=== PATIENT | male | born 1980 | race Two or more races ===

== ENCOUNTER 2017-03-12 14:56 | Emergency (ER) | payer BC, SELFPAY ==
[~2017-03-12] VITALS: Ht 165.1 cm; Wt 159.1 kg
[2017-03-12] MEDS ORDERED: TYLE325T5 PO (15:13)
[2017-03-12] MEDS ORDERED: IBUP-1022 PO (15:13)
[2017-03-12] MEDS ORDERED: NS 1,000 ML IV ONE (15:45)
[2017-03-12] MEDS ORDERED: MORPHINE 2 MG/ML 1ML SYRINGE IV ONE (15:45)
[2017-03-12] MEDS ORDERED: ONDANSETRON 4MG/2ML VIAL (J2405) IV ONE (16:00)
[2017-03-12] MEDS ORDERED: ACETAMINOPHEN 325 MG TAB PO ONE (16:00)
[2017-03-12 16:05] LABS: MEAN CORPUSCULAR HEMOGLOBIN 28.6 pg (27.0-33.0); MEAN CORPUSCULAR HGB CONC 32.3 g/dl (32.0-36.5); MEAN CORPUSCULAR VOLUME 88.3 fl (80.0-96.0); PLATELET COUNT, AUTOMATED 165 10^3/uL (150-450); RED CELL DISTRIBUTION WIDTH 13.9 % (11.5-14.5)
[2017-03-12 16:06] LABS: LEFT SHIFT POS FLAG; POSITIVE MORPH POS FLAG
[2017-03-12 16:07] LABS: ADD MANUAL DIFFER YES; BLASTS POS FLAG; DIFF SLIDE NUMBER 130
[2017-03-12 16:37] LABS: BANDS 10 % (< 11)
[2017-03-12 16:38] LABS: PLATELET CLUMPS MODERATE AMT
[2017-03-12 16:41] LABS: DOHLE BODIES 1+
[2017-03-12 16:42] LABS: ALBUMIN 2.9 GM/DL (3.2-5.2); ALBUMIN/GLOBULIN RATIO 0.64 (1.00-1.93); CALCIUM LEVEL 8.8 MG/DL (8.5-10.1); CREATININE FOR GFR 1.64 MG/DL (0.70-1.30); GLOMERULAR FILTRATION RATE 50.3 (>60); POTASSIUM SERUM 3.5 MEQ/L (3.5-5.1); TOTAL PROTEIN 7.4 GM/DL (6.4-8.2)
--- NOTE | 2017-03-12 17:02 | REP ---
Left lower extremity deep vein duplex ultrasound: Because of patient body habitus, soft tissue swelling and pain. The patient could not tolerate compression by the transducer. However, color flow was identified from the popliteal vein to the common femoral vein. This is a limited study. No evidence of deep vein thrombus on this limited study. Signed by Dixon Serrano MD 03/12/2017 04:53 P
[2017-03-12] MEDS ORDERED: CLINDAMYCIN 900 MG in APPROPRIATE DILUENT 1 EA IV ONE (17:15)
[2017-03-12] MEDS ORDERED: IBUPROFEN 800 MG TAB PO ONE (17:45)
[2017-03-12] MEDS ORDERED: CLEO300C2 PO (18:37)
[2017-03-12] MEDS ORDERED: PERC5TAB12 PO (18:37)
[2017-03-12 18:43] VITALS: BP 100/51
== END 2017-03-12 19:05 | disposition home or self-care (01) ==
LOC: M ED 14:56
DX: L03.116 Cellulitis of left lower limb (principal); K52.9 Noninfective gastroenteritis and colitis, unspecified
CPT/HCPCS: 80053; 83605; 85025; 87040; 87804; 93971; 96361; 96365; 96375; 99284; J2405

== ENCOUNTER 2017-03-14 07:15 | Inpatient (IN) | payer SELFPAY ==
[~2017-03-14] VITALS: Ht 165.1 cm; Wt 173.7 kg
[~2017-03-14 07:15] MED LIST: CLEO300C2 PO; IBUP-1022 PO; PERC5TAB12 PO; TYLE325T5 PO
[2017-03-14] MEDS ORDERED: CEFTAROLINE FOSAMIL 600 MG in D5W 50 ML IV ONE (08:00)
[2017-03-14 08:32] LABS: BASO % 0.3 % (0.0-1.0); LYMPH # 0.8 10^3/uL (1.5-4.5); MEAN CORPUSCULAR HEMOGLOBIN 28.9 pg (27.0-33.0); MEAN CORPUSCULAR HGB CONC 32.7 g/dl (32.0-36.5); MEAN CORPUSCULAR VOLUME 88.1 fl (80.0-96.0); MONO # 1.4 10^3/uL (0.0-0.8); MONO % 10.8 % (0.0-5.0); NEUTROPHILS # 10.4 10^3/uL (1.8-7.7); NEUTROPHILS % 81.9 % (36.0-66.0); PLATELET COUNT, AUTOMATED 205 10^3/uL (150-450); RED CELL DISTRIBUTION WIDTH 14.5 % (11.5-14.5); WHITE BLOOD COUNT 12.8 10^3/uL (4.0-10.0)
[2017-03-14 08:38] LABS: LEFT SHIFT POS FLAG; POSITIVE MORPH POS FLAG
[2017-03-14 09:03] LABS: ERYTHROCYTE SEDIMENTATION RATE 85 mm/hr (0-15)
[2017-03-14 09:11] LABS: BANDS 1 % (< 11); CALCIUM LEVEL 9.1 MG/DL (8.5-10.1); CREATININE FOR GFR 3.44 MG/DL (0.70-1.30); GLOMERULAR FILTRATION RATE 21.4 (>60); POTASSIUM SERUM 3.4 MEQ/L (3.5-5.1)
[2017-03-14 09:13] LABS: DOHLE BODIES 1+
[2017-03-14] MEDS ORDERED: NS 1,000 ML IV ONE (09:45)
[2017-03-14] MEDS ORDERED: ACET50TAOT PO (10:00)
[2017-03-14] MEDS ORDERED: CEFTAROLINE FOSAMIL 300 MG in D5W 50 ML IV SCH ×2 (10:15→21:00)
--- NOTE | 2017-03-14 11:15 | REP ---
Left lower extremity Duplex Doppler venous ultrasound: Real time compression and duplex Doppler interrogation of the left lower extremity deep venous system is performed. The left common femoral, superficial femoral and popliteal veins are fully compressible with transducer pressure and demonstrate normal spontaneous and phasic flow, without evidence of deep venous thrombosis. Impression: No evidence of deep venous thrombosis of the left lower extremity femoral popliteal venous system. There is left inguinal adenopathy with several enlarged lymph nodes present, the largest measuring 5.9 x 1.7 x 3.2 cm. Signed by Dixon Wilson MD 03/14/2017 11:07 A
[2017-03-14 11:55] VITALS: BP 137/92
--- NOTE | 2017-03-14 11:57 | REP ---
RENAL AND BLADDER ULTRASOUND: Real-time sonographic evaluation of the kidneys performed. Study is limited due to patient body habitus. Kidneys appear normal in size and echotexture, right kidney measuring 14.3 x 5.3 x 5.6 cm and left kidney 14.0 x 5.8 x 6.7 cm. There is no hydronephrosis bilaterally. No gross mass or calculus is seen. Urinary bladder is mildly distended and grossly unremarkable. IMPRESSION: No evidence of hydronephrosis. Signed by Dixon Wilson MD 03/15/2017 04:25 P
[2017-03-14] MEDS: NS 1,000 ML IV SCH ×2 (12:16→21:00)
[2017-03-14] MEDS: ACETAMINOPHEN TAB 650MG DOSE (2X325MG) PO PRN ×3 (12:16→22:09)
[2017-03-14] MEDS: HEPARIN SOD (PORCINE) 5000 UNITS/ML VIAL SC SCH ×2 (13:50→20:59)
[2017-03-14 16:00] VITALS: BP 135/79
--- NOTE | 2017-03-14 17:18 | HPEPDOC ---
General Date of Admission Mar 14, 2017 at 10:09 Chief Complaint The patient is a 36-year-old male who presented to the ER with complaints of left lower extremity swelling, pain and redness. History of Present Illness Patient is a 36 year old male with no reported PMHx who presented to the ER with complaints of left lower extremity swelling, pain and redness. He has noted that on he began to experience redness and pain of his left leg. He described the pain as a 4/10, tingling sensation, continuous, alleviated with walking and exacerbated by sitting. He presented to the ER on Monday and received an US that was negative for a DVT. He was sent home with Clindamycin and advised to take Ibuprofen for the pain. Over the next day his leg became more swollen and weepy. He described the discharge as clear and watery. He denied having any fevers. But did report chills. He presented back to the ER today (03/14) for further evaluation. He denies any trauma or bug bites to the leg. He denies nausea, vomiting, chest pain, shortness of breath, palpitations, abdominal pain, constipation, diarrhea or dysuria. Denies any recent change in his weight or appetite. Home Medications Scheduled Clindamycin Hcl (Cleocin) 300 Mg Cap, 300 MG PO QID Scheduled PRN Acetaminophen (Acetaminophen) 500 Mg Tab, 1,000 MG PO Q6H PRN for PAIN, ( Reported) Ibuprofen (Ibuprofen) 600 Mg Tab, 800 MG PO Q6H PRN for PAIN, (Reported) Oxycodone/Acetaminophen (Percocet 5-325 mg) 1 Tab Tab, 1 TAB PO Q6H PRN for PAIN Allergies Coded Allergies: No Known Drug Allergy (Verified Allergy, Unknown, 03/12/17) Past Medical History Medical History Denies Surgical History Double hernia as infant Spermatacord torsion (age 89 Vasectomy (2011) Right hand tendon repair (2007) Family History - Mother with history of chronic fatigue - Father with no reported problems - No history of malignancies Social History - Denies the use of tobacco or illicit drugs; Social alcohol use - Denies recent travel or sick contacts - Lives with and children - Occupation; fruit or nut farmer Review of Symptoms Other systems Negative otherwise stated in HPI Vital Signs - Vitals: BP 126/78, HR 106, RR 18, Sat 94%RA, Temp 96.9F - General: Lying in bed, No acute distress, Speaking in full sentences, AAOx3 - HEENT: NC, AT, PERRLA, EOMI - CVS: RRR, +S1S2 - Lungs: Fair air entry bilaterally, Clear to auscultation, No wheezing / rales / rhonchi - Abdomen: Soft, Non-distended, Non-tender, Obese - Extremities: 1+ pitting edema bilaterally, No calf tenderness - Neuro: No focal motor or sensory deficit - Skin: Left leg with anterior redness, erythema, tenderness and drainage Laboratory Data Labs 24H Laboratory Tests 2 03/14/17 08:19: Immature Granulocyte % (Auto) 1.0H, White Blood Count 12.8H, Red Blood Count 3.88L, Hemoglobin 11.2L, Hematocrit 34.2L, Mean Corpuscular Volume 88.1, Mean Corpuscular Hemoglobin 28.9, Mean Corpuscular Hemoglobin Concent 32.7, Red Cell Distribution Width 14.5, Platelet Count 205, Neutrophils (%) (Auto) 81.9H, Lymphocytes (%) (Auto) 6.0L, Monocytes (%) (Auto) 10.8H, Eosinophils (%) (Auto) 0.0, Basophils (%) (Auto) 0.3, Neutrophils # (Auto) 10.4H, Lymphocytes # (Auto) 0.8L, Monocytes # (Auto) 1.4H, Eosinophils # (Auto) 0.0, Basophils # (Auto) 0.0 , Immature Granulocyte # (Auto) 0.1H, Nucleated Red Blood Cells % (auto) 0.0, Neutrophils 81H, Band Neutrophils 1, Lymphocytes (Manual) 7L, Monocytes (Manual ) 11H, Dohle Bodies 1+, Platelet Estimate NORMAL, Erythrocyte Sedimentation Rate 85H, Anion Gap 11, Glomerular Filtration Rate 21.4L, Osmolality 295, Lactic Acid Level 0.7, Blood Urea Nitrogen 55#H, Creatinine 3.44#H, Sodium Level 133L, Potassium Level 3.4L, Chloride Level 99, Carbon Dioxide Level 23, Calcium Level 9.1, C-Reactive Protein, Quantitative 42.30H CBC/BMP Laboratory Tests 03/14/17 08:19 Red Blood Count 3.88 L, Mean Corpuscular Volume 88.1, Mean Corpuscular Hemoglobin 28.9, Mean Corpuscular Hemoglobin Concent 32.7, Red Cell Distribution Width 14.5, Neutrophils (%) (Auto) 81.9 H, Lymphocytes (%) (Auto) 6.0 L, Monocytes (%) (Auto) 10.8 H, Eosinophils (%) (Auto) 0.0, Basophils (%) ( Auto) 0.3, Neutrophils # (Auto) 10.4 H, Lymphocytes # (Auto) 0.8 L, Monocytes # (Auto) 1.4 H, Eosinophils # (Auto) 0.0, Basophils # (Auto) 0.0, Calcium Level 9.1 Microbiology Microbiology 03/14/17 Blood Culture, Received Pending 03/14/17 Blood Culture, Received Pending Plan / VTE VTE Prophylaxis Ordered?: Yes Plan Plan Cellulitis of Left leg - Presented with pain, swelling and redness of left leg - Failed outpatient therapy - Leukocytosis, no lactic acidosis - Blood cultures and Wound cultures acquired and pending - s/p Ceftaroline 600mg in ER; will c/w 400mg IV q12h Acute kidney injury - likely 2/2 intra-renal etiology, possibly pre-renal etiology - Cr on Monday (03/12) was noted to be 1.64 - Currently Cr of 3.44 - No electrolyte abnormalities noted - Will check urine electrolytes, Urinalysis, Renal US - c/w IV fluid hydration with NS - Avoid nephrotoxic medications - Consulted nephrology Bilateral LE edema - possibly 2/2 dependent edema, possibly 2/2 CHF - Does not complain of any shortness of breath - Lungs auscultation is clear - will check ECHO DVT prophylaxis - Will start Heparin DANIEL DENNY MD Mar 14, 2017 17:18
[2017-03-14 20:00] VITALS: BP 131/74
[2017-03-14] MEDS ORDERED: CEFTAROLINE FOSAMIL 400 MG in D5W 50 ML IV SCH (21:00)
[2017-03-15] VITALS (8 sets, daily range): BP systolic 124–178; BP diastolic 60–88
[2017-03-15] MEDS: PERCOCET 5MG/325MG TAB PO PRN ×2 (02:33→10:46)
[2017-03-15] MEDS: HEPARIN SOD (PORCINE) 5000 UNITS/ML VIAL SC SCH ×3 (06:00→22:30)
[2017-03-15] MEDS: NS 1,000 ML IV SCH ×2 (07:30→18:57)
[2017-03-15 07:44] LABS: MEAN CORPUSCULAR HEMOGLOBIN 28.7 pg (27.0-33.0); MEAN CORPUSCULAR VOLUME 89.8 fl (80.0-96.0); PLATELET COUNT, AUTOMATED 218 10^3/uL (150-450); RED CELL DISTRIBUTION WIDTH 14.7 % (11.5-14.5); WHITE BLOOD COUNT 12.5 10^3/uL (4.0-10.0)
[2017-03-15 07:57] LABS: LEFT SHIFT POS FLAG; POSITIVE MORPH POS FLAG
[2017-03-15 07:58] LABS: ADD MANUAL DIFFER YES; DIFF SLIDE NUMBER 68
[2017-03-15] MEDS: FIORICET TAB PO PRN ×3 (08:00→20:30)
[2017-03-15 08:25] LABS: BANDS 1 % (< 11)
[2017-03-15 08:26] LABS: ALBUMIN 2.2 GM/DL (3.2-5.2); ALBUMIN/GLOBULIN RATIO 0.48 (1.00-1.93); BILIRUBIN,TOTAL 0.6 MG/DL (0.2-1.0); CALCIUM LEVEL 8.7 MG/DL (8.5-10.1); CREATININE FOR GFR 2.51 MG/DL (0.70-1.30); GLOMERULAR FILTRATION RATE 30.8 (>60); MAGNESIUM LEVEL 2.4 MG/DL (1.8-2.4); POTASSIUM SERUM 3.8 MEQ/L (3.5-5.1); TOTAL PROTEIN 6.8 GM/DL (6.4-8.2)
--- NOTE | 2017-03-15 09:08 | REP ---
Head CT without contrast: History: Question bleed. Comparison study: No comparison. CT findings: Bone window settings demonstrate an intact bony calvarium. There is no evidence of skull fracture or incidental bony calvarial lesion. The visualized paranasal sinuses appear clear. No intraorbital abnormality is seen. On soft tissue window setting images; the lateral, third, and fourth ventricles are normal in size and position. Wilson-white differentiation pattern is normal above and below the tentorium. There are is no evidence of intracranial hemorrhage. No mass, edema, infarction, or midline shift is seen. No extra-axial fluid collection is appreciated. Impression: Negative noncontrast head CT. Signed by Osmel Gillespie MD 03/15/2017 09:00 A
[2017-03-15] MEDS ORDERED: CEFTAROLINE FOSAMIL 400 MG in D5W 50 ML IV SCH (10:00)
--- NOTE | 2017-03-15 11:09 | IPNPDOC ---
Text Note Date of Service The patient was seen on 03/15/17. NOTE Subjective: Patient is a 36 year old male with no reported PMHx who presented to the ER with complaints of left lower extremity swelling, pain and redness. Admitted for left leg cellulitis. Patient was seen and examined at the bedside. Currently notes that the pain in his leg is doing better, but has been noticing pain in is left upper groin. He continues to spike fevers. He also notes a migraine type headache. Objective: Vitals (See below) General: Lying in bed, no acute distress, uncomfortable, AAOx3 HEENT: NC, AT CVS: RRR, +S1S2 Lungs: Fair air entry b/l, -w/r/r Abdomen: Soft, ND, NT, Obese Extremities: 1+ pitting edema bilaterally, - Calf tenderness Skin: Left leg with anterior redness, erythema, tenderness and drainage; +Left inguinal lymphadenopathy Assessment and plan: Cellulitis of Left leg; possibly appears to be worsening - Presented with pain, swelling and redness of left leg; denies any trauma / bug bites - Failed outpatient therapy - Leukocytosis persists, no lactic acidosis again on lab work; CRP trending down - Blood cultures remain pending; Wound cultures currently negative - Duplex US 03/14: negative for DVT - Will order CT of left lower extremity to evaluate - Start Vancomycin and Zosyn; Will d/c Ceftaroline Headache - likely 2/2 migraine headache - CT scan head 03/15: Negative - c/w Fioricet Acute kidney injury - likely 2/2 intra-renal etiology, possibly pre-renal etiology - Cr on Monday (03/12) was noted to be 1.64; on admission was 3.44 - Cr has trended down - No electrolyte abnormalities noted - FENa of 0.4%; Renal US 03/14: no evidence of hydronephrosis - c/w IV fluid hydration with NS and avoid nephrotoxic medications - Nephrology (Dr. Garcia / Dr. Payne) following; appreciate their input Bilateral LE edema - possibly 2/2 dependent edema, possibly 2/2 CHF - Does not complain of any shortness of breath - Lungs auscultation is clear - ECHO pending s/p Hypokalemia s/p Hyponatremia DVT prophylaxis - c/w Heparin VS,Fishbone, I+O VS, Fishbone, I+O Laboratory Tests 03/15/17 07:28 Red Blood Count 3.62 L, Mean Corpuscular Volume 89.8, Mean Corpuscular Hemoglobin 28.7, Mean Corpuscular Hemoglobin Concent 32.0, Red Cell Distribution Width 14.7 H, Calcium Level 8.7, Aspartate Amino Transf (AST/SGOT) 38 H, Alanine Aminotransferase (ALT/SGPT) 60, Alkaline Phosphatase 116, Total Bilirubin 0.6, Total Protein 6.8, Albumin 2.2 #L Vital Signs Date Time Temp Pulse Resp B/P (MAP) Pulse Ox O2 Delivery O2 Flow Rate FiO2 03/15/17 10:46 24 03/15/17 08:30 Room Air 03/15/17 08:30 99.8 97 124/82 (96) 97 DANIEL DENNY MD Mar 15, 2017 11:09
--- NOTE | 2017-03-15 12:25 | REP ---
CT of the pelvis without IV contrast: There are no comparisons. There is no ascites or adenopathy. There are no focal soft tissue fluid collections to suggest abscess. There are occasional diverticula in the sigmoid colon without CT evidence of diverticulitis. There are no lytic, blastic or destructive skeletal changes to suggest osteomyelitis. There is wall thickening of the distal sigmoid colon, nonspecific, artifact from under distension. However, this could represent colitis in the appropriate clinical setting. Impression: No evidence of abscess or osteomyelitis. Question colitis of the distal sigmoid colon versus artifact from under distension. Signed by Dixon Serrano MD 03/15/2017 12:16 P
--- NOTE | 2017-03-15 12:30 | REP ---
CT of the left femur without IV contrast: There are no lytic, blastic or destructive skeletal changes to suggest osteomyelitis. There is circumferential edema in the subcutaneous fat compatible with dependent edema. There is edema in the subcutaneous fat surrounding the left femoral nodes which could be infectious/inflammatory versus dependent edema. There is no lymph node enlargement. No focal soft tissue fluid collections to suggest abscess. Impression: Circumferential soft tissue edema in the subcutaneous fat of the left thigh. Focal edema in the subcutaneous fat surrounding the left femoral nodes. No focal abscess. No CT evidence of osteomyelitis. Signed by Dixon Serrano MD 03/15/2017 12:20 P
[2017-03-15] MEDS: PIPERACILLIN/TAZOBACTAM SOD 2.25 GM in D5W 50 ML IV SCH ×2 (12:47→20:51)
--- NOTE | 2017-03-15 12:55 | REP ---
CT of the foot without IV contrast : Axial images are acquired helical scanning and a reformatted sagittal coronal projections. There are no comparison studies. There is circumferential edema in the subcutaneous fat, possibly dependent anemia. No soft tissue fluid collection is identified to suggest a soft tissue mass. There are no lytic, blastic or destructive skeletal changes to suggest osteomyelitis. There is a small calcification interposed into the joint space along the anterior joint line. This could be a loose body or could be ligamentous calcification. There is no fracture or dislocation. There is osteochondroses density cans of the talar dome laterally. Impression: No soft tissue fluid collections suggest abscess. No evidence of osteomyelitis. Osteochondrosis dessicated of the dome of the talus laterally. Small calcification along the anterior and tibiotalar joint line, ligamentous calcification versus intra-articular loose body. Circumferential edema in the subcutaneous fat, likely dependent edema. Signed by Dixon Serrano MD 03/15/2017 12:47 P
--- NOTE | 2017-03-15 13:01 | REP ---
CT of the left tibia-fibula: Axial images are acquired helical scanning and are reformatted sagittal and coronal projections. There is circumferential edema in the subcutaneous fat throughout the lower extremity compatible with dependent edema. No focal fluid collection is identified to suggest abscess. There is a 3 cm skin lesion medially at the mid calf. There are no lytic, blastic or destructive skeletal changes to suggest osteomyelitis. There is osteochondrosis this cans of the head of the talus posterior O laterally. Impression: No soft tissue abscess. No CT evidence of osteomyelitis. There is circumferential soft tissue edema compatible with dependent edema. There is a t 3 cm skin lesion at the mid calf medially. Signed by Dixon Serrano MD 03/15/2017 12:53 P
[2017-03-15] MEDS: VANCOMYCIN HCL 1,000 MG, VIAL MATE ADAPTER 1 EACH in D5W 250 ML IV SCH (13:40)
[2017-03-15] MEDS ORDERED: VANCOMYCIN HCL 1,000 MG, VIAL MATE ADAPTER 1 EACH in D5W 250 ML IV ONE (14:00)
--- NOTE | 2017-03-15 14:48 | PHACANCOPD ---
PHARMACY VANCOMYCIN DOSING Pt Demographics Demographics Patient Age:36 , Weight:172.900 , Gender: male Adjusted Body Weight Date: 03/15/17, Adjusted Body Weight: Kg Vancomycin Vancomycin indication: MRSA COVERAGE Vancomycin Target Ranges: 15-20 mcg/ml Vancomycin Load Y/N: Yes Load Dose Date Time Vancomycin Load Dose: 2g Date: 03/15/17 Time: 1300 Vancomycin Dose Date: 03/15/17. Current Vancomycin Dose: [1g IV Q24H] Intermittent Dosing?: No Labs Micro Microbiology 03/15/17 Blood Culture, Received Pending 03/15/17 Blood Culture, Received Pending 03/14/17 Blood Culture - Preliminary, Resulted No growth after 24 hours . All specim... 03/14/17 Blood Culture - Preliminary, Resulted No growth after 24 hours . All specim... 03/14/17 Gram Stain - Final, Resulted 03/14/17 Wound Culture - Preliminary, Resulted Staphylococcus Aureus Creatinine Clearance Date:03/15/17. Creatinine Clearance: . Assessment and Plan Maintaining Current Dose?: Yes Reason for dose change: No Dose Change Pharmacist Note Pharmacist Note Date: 03/15/17. Pharmacist note: Day#1 empiric vancomycin initiated with a 2g loading dose, followed by a maintenance regimen of 1g IV q24H for MRSA coverage - aiming for a goal trough of 15-20mcg/ml. A vancomycin trough has been scheduled for 03/17/17 @1200. We will continue to monitor and make dose adjustments if needed. MY[facility] Mar 15, 2017 14:48
[2017-03-15] MEDS: ACETAMINOPHEN TAB 650MG DOSE (2X325MG) PO PRN (18:56)
--- NOTE | 2017-03-15 20:36 | CR ---
DATE OF CONSULTATION: 03/14/2017 REQUESTING PHYSICIAN: Abraham Nguyễn MD REASON FOR CONSULTATION: Management of acute kidney injury. CHIEF COMPLAINT: Six day history of left lower extremity swelling, pain, and erythema. HISTORY OF PRESENT ILLNESS: Patient is a 36-year-old male who denies any significant past medical history, but who also admits that he has not seen a physician for care in at least the past 8 years and also denies any blood work in the past 6-8 years. He only admits to a history of morbid obesity. The patient states he was in his usual state of health until when he noted tenderness, pain, and swelling in his left leg. The symptoms progressively got worse despite the patient using ibuprofen and Tylenol as needed at home. The patient came to the emergency room on Monday for further evaluation and he had a venous Duplex at the time that was negative for deep venous thrombosis (DVT). His creatinine on that emergency room (ER) visit was 1.6 and he had a white count of 12.8. The patient was sent home with a prescription for clindamycin and advised to take ibuprofen for pain as needed. The patient reports he took about six ibuprofen on Monday and he also received 800 mg of ibuprofen in the emergency room on Monday. On Monday, the patient states he took six ibuprofen in the morning and a further six ibuprofen in the evening, a cumulative dose of 2400 mg of ibuprofen on Monday. His pain did not lessen despite significant nonsteroidal anti-inflammatory drug (NSAID) use and the patient also noted concomitant fevers and chills at home, stated that his temperatures were 103-104, and also intermittent diarrhea and poor oral intake. He came to the emergency room again today for further evaluation. In the ER on arrival, patient was mildly tachycardic, pulse 106. Labs demonstrated decremental decrease in glomerular filtration rate (GFR) with creatinine of 3.4 today. He received IV ceftaroline and normal saline bolus and Tylenol for pain control. PAST MEDICAL HISTORY: Morbid obesity. Patient otherwise denies past medical history, but admits to not having had outpatient care with a physician for at least the past 6-8 years. PAST SURGICAL HISTORY: 1. Hernia repair in infancy. 2. Vasectomy in 2011. 3. Hand surgery in 2007. FAMILY HISTORY: Mother with reported gynecologic malignancy. Father with no reported medical problems. One brother and two sisters, alive and healthy. SOCIAL HISTORY: The patient denies tobacco or illicit drugs. He admits to social alcohol. He denies any recent travel. He works as a guerrero. ALLERGIES: No known drug allergies. HOME MEDICATIONS: The patient was taking Tylenol, ibuprofen, and clindamycin. REVIEW OF SYSTEMS: Positive for fevers, chills, nausea, diarrhea, left lower extremity pain, swelling, tenderness, and erythema, occasional lightheadedness. Remainder of review of systems is negative. Temperature afebrile, 98.1, pulse 88, respiratory rate 18, blood pressure 135/79, saturating 95% on room air. Intake and output: Urine output thus far 850 mL. PHYSICAL EXAMINATION: The patient is seen in the emergency room. He is awake, alert, oriented times four and in no acute distress. HEAD and NECK: Extraocular muscles are intact. The oral mucosa is moist. The neck is supple and obese. CARDIOVASCULAR: Distant heart sounds, S1, S2, 2+ radial pulse. There is 1+ pitting edema in the right lower extremity and significantly more pitting edema in the left lower extremity. LUNGS: Diminished air entry at bases and distant sounds of air movement. No audible rale or crackle. ABDOMEN: Soft, obese, nontender. EXTREMITIES: Left leg calf with circumferential erythema, tenderness, warmth, and swelling with several fluid filled blisters and weeping and drainage of the skin. Right lower extremity with 1+ edema. NEUROLOGIC: No focal deficits. PSYCHIATRIC: Appropriate mood and affect. LABORATORY DATA: White count 12.8, hemoglobin 11.2, platelets 205. Sodium 133, potassium 3.4, bicarbonate 23, BUN 55, creatinine 3.4, calcium 9.1, CRP 42, ESR 85, lactic acid 0.7. Urine osmolality 368, serum osmolality 295. FENa less than 1%. Urinalysis 1+ protein, 1+ blood. Microbiology: Blood cultures drawn and pending. Wound culture drawn and pending. IMAGIN03/14/2017 renal ultrasound, limited due to body habitus, but otherwise no evidence of hydronephrosis. Vascular ultrasound 03/14/2017, no evidence for DVT. INPATIENT MEDICATIONS: The patient is on ceftaroline 300 mg IV every 12 hours and normal saline at 100 mL/hour, heparin 5000 units subcutaneous every 8 hours, acetaminophen 650 mg by mouth every 4 hours as needed. ASSESSMENT AND PLAN: 36-year-old male with several day history of progressive cellulitis of the left lower extremity with reported heavy use of nonsteroidal anti-inflammatory drugs (NSAIDs) and currently with acute kidney injury. 1. Nonoliguric acute kidney injury, secondary to heavy nonsteroidal anti-inflammatory drug (NSAID) use causing afferent vasoconstriction in the setting of progressive cellulitis with reported fevers, diarrhea, and decreased oral intake. The patient's FENa of less than 1% is consistent with intense afferent vasoconstriction from heavy use of NSAIDs. His baseline renal function is unknown. Creatinine was noted to be 1.6 two days earlier on an emergency room (ER) visit. Patient's electrolytes are fairly stable at this time with the except of mild hyponatremia. Renal imaging did not show any hydronephrosis or obstruction. Okay for gentle IV hydration at this time and would strictly avoid nephrotoxins and appropriately dose medications for glomerular filtration rate (GFR). His renal function is expected to improve with supportive care. 2. Cellulitis of the left lower extremity with leukocytosis and failure of outpatient clindamycin. The patient is currently on renally dosed ceftaroline. Blood cultures and wound cultures are drawn and pending. His erythrocyte sedimentation rate and (ESR) C-reactive protein (CRP) are both significantly elevated and his venous Duplex was negative for deep venous thrombosis (DVT). 3. Asymmetric lower extremity edema. The patient's left lower extremity is significantly swollen secondary to cellulitis. He does have trace to 1+ edema in the right lower extremity. At this point, okay to continue with gentle IV hydration and we will followup on the results of the echocardiogram. 4. Asymptomatic mild hyponatremia. Will monitor without further intervention at this time and followup repeat sodium in the morning.
[2017-03-16 02:00] VITALS: BP 166/100
[2017-03-16] MEDS: NS 1,000 ML IV SCH ×3 (02:06→21:30)
[2017-03-16] MEDS: ACETAMINOPHEN TAB 650MG DOSE (2X325MG) PO PRN ×3 (02:06→17:43)
[2017-03-16] MEDS: PIPERACILLIN/TAZOBACTAM SOD 2.25 GM in D5W 50 ML IV SCH ×3 (03:37→19:54)
[2017-03-16] MEDS: HEPARIN SOD (PORCINE) 5000 UNITS/ML VIAL SC SCH ×3 (05:28→21:30)
[2017-03-16 06:00] VITALS: BP 149/80
[2017-03-16 06:11] LABS: BASO % 0.3 % (0.0-1.0); EOS % 0.2 % (0.0-3.0); IMMATURE GRANULOCYTE % 2.1 % (0-0); LYMPH % 7.8 % (24.0-44.0); MEAN CORPUSCULAR HEMOGLOBIN 28.8 pg (27.0-33.0); MEAN CORPUSCULAR HGB CONC 32.2 g/dl (32.0-36.5); MEAN CORPUSCULAR VOLUME 89.5 fl (80.0-96.0); MONO # 1.5 10^3/uL (0.0-0.8); MONO % 11.2 % (0.0-5.0); NEUTROPHILS # 10.5 10^3/uL (1.8-7.7); NEUTROPHILS % 78.4 % (36.0-66.0); PLATELET COUNT, AUTOMATED 262 10^3/uL (150-450); RED CELL DISTRIBUTION WIDTH 14.8 % (11.5-14.5); WHITE BLOOD COUNT 13.3 10^3/uL (4.0-10.0)
[2017-03-16 06:35] LABS: ALBUMIN 2.3 GM/DL (3.2-5.2); ALBUMIN/GLOBULIN RATIO 0.61 (1.00-1.93); BILIRUBIN,TOTAL 0.8 MG/DL (0.2-1.0); CALCIUM LEVEL 8.3 MG/DL (8.5-10.1); CREATININE FOR GFR 1.84 MG/DL (0.70-1.30); MAGNESIUM LEVEL 2.2 MG/DL (1.8-2.4); POTASSIUM SERUM 3.7 MEQ/L (3.5-5.1); TOTAL PROTEIN 6.1 GM/DL (6.4-8.2); VANCOMYCIN RANDOM 9.4 UG/ML
--- NOTE | 2017-03-16 09:33 | IPN ---
DATE: 03/15/2017 SUBJECTIVE: The patient is seen this morning at the bedside. His is present as well. He continues to spike a fever, maximum temperature (t-max) of 101.7 at 11:00 a.m. He complains of terrible headaches, mostly in the frontal region. His renal function has improved overnight with IV fluids. He continues to complain of ongoing pain in the left lower extremity. REVIEW OF SYSTEMS: Positive for fevers, chills, nausea, headache, left lower extremity swelling, pain and discomfort. Review of systems is otherwise negative for dizziness, chest pain, palpitations, shortness of breath, vomiting, dysuria. The remainder of the review of systems is negative. VITAL SIGNS: Temperature 101.7, pulse 102, respiratory rate 24, blood pressure 140/84, saturating 95% on room air. Intake and output: Urine output yesterday is recorded as 850 mL. Weight on the bed scale today is 175.1 kg. PHYSICAL EXAMINATION: The patient is seen in the bed. His eyes are closed. He is in mild distress from a headache. His is present at the bedside. Extraocular muscles are intact. Neck is supple without any stiffness. Oral mucosa is moist. The neck is obese, making it hard to assess the jugular veins. CARDIAC: S1, S2. Mild tachycardia. 2+ radial pulse. Trace edema in the right lower extremity. LUNGS: Air movement is distant but symmetric. ABDOMEN: Soft, obese, nontender. There is no suprapubic distention. EXTREMITIES: The left lower extremity is significant for significant edema, erythema, warmth, induration, and several scattered weeping blisters, both on the anterior alvares and on the posterior calf. NEUROLOGIC: The patient is oriented and appropriately interactive and conversational. PSYCHIATRIC: Appropriate mood and affect. SKIN: The skin is moist to touch with cellulitic changes as described in the left lower extremity. LABORATORY DATA: White count 12.5 hemoglobin 10.4, platelets 218. Sodium 136, potassium 3.8, bicarbonate 24, BUN 49, creatinine 2.5, C-reactive protein down trending to 26.9. Microbiology: Wound culture growing Staphylococcus aureus. Blood cultures are drawn and pending on 03/15 and previous blood cultures on 03/14 are no growth for 24 hours. Imaging: Head CT on 03/15 was negative for any acute findings. INPATIENT MEDICATIONS: Reviewed by myself, the patient continues on: - normal saline at 100 mL an hour - Zosyn 2.25 grams IV every 8 hours - he will receive 2 grams of vancomycin today per the primary team Remainder of medications are unchanged from prior. ASSESSMENT AND PLAN: 1. Nonoliguric acute kidney injury secondary to use of excessive nonsteroidal antiinflammatory drugs (NSAIDs) in the setting of cellulitis with fevers with reported high grade fevers, diarrhea, and decreased oral intake. The patient is in renal recovery. His creatinine is down trending. His baseline creatinine is unknown. He is polyuric today. If his sodium is significantly higher tomorrow, I will switch him to hypotonic fluid. For now, continue with normal saline. 2. Left lower extremity cellulitis. Ongoing high grade temperature. The patient was re cultured today. His wound culture is growing staph. C-reactive protein has improved from prior, but the patient continues to spike high grade fevers. His antibiotic regimen was switched per the primary team. He received 2 grams of vancomycin today and is on renally dosed Zosyn. Given his acute kidney injury, I will check a random vancomycin level in the morning. He should be redosed for vancomycin level between 15 to 20. 3. Headache. The patient had a CT scan which did not show any acute findings. He is receiving analgesics as needed. On exam there was no neck stiffness appreciated. MTDD
[2017-03-16 10:00] VITALS: BP 164/75
[2017-03-16] MEDS: FIORICET TAB PO PRN ×3 (12:04→23:13)
--- NOTE | 2017-03-16 13:14 | IPNPDOC ---
Text Note Date of Service The patient was seen on 03/16/17. NOTE Subjective: Patient is a 36 year old male with no reported PMHx who presented to the ER with complaints of left lower extremity swelling, pain and redness. Admitted for left leg cellulitis. Patient was seen and examined at the bedside. He notes that his leg feels better , still remains weeping. He notes that his headache has improved with Fioricet. Objective: Vitals (See below) General: Lying in bed, no acute distress, uncomfortable, AAOx3 HEENT: NC, AT CVS: RRR, +S1S2 Lungs: Fair air entry b/l, -w/r/r Abdomen: Soft, ND, NT, Obese Extremities: 1+ pitting edema bilaterally, - Calf tenderness Skin: Left leg extending to medial aspect of thigh with anterior redness, erythema, tenderness and drainage; +Left inguinal lymphadenopathy Assessment and plan: Cellulitis of Left leg - failed outpatient therapy - Presented with pain, swelling and redness of left leg; denies any trauma / bug bites - Leukocytosis has show elevation, CRP continues to improve - Blood culture 03/14: Gram Positive Rods (1 of 2); Repeat cultures 03/15: Pending - Wound Culture 03/14: MSSA - Duplex US 03/14: negative for DVT - CT pelvis and lower extremities 03/15: No evidence of fluid collection or osteomyelitis - c/w Vancomycin and Zosyn (Day #2); s/p Ceftaroline (Received 1 day course) Headache - likely 2/2 migraine headache - CT scan head 03/15: Negative - c/w Fioricet at adjusted dose Acute kidney injury - likely 2/2 intra-renal etiology, possibly pre-renal etiology - Cr on Monday (03/12) was noted to be 1.64; on admission was 3.44 - Cr has trended down and there remains to be any electrolyte abnormalities - FENa of 0.4%; Renal US 03/14: no evidence of hydronephrosis - c/w IV fluid hydration with NS and avoid nephrotoxic medications - Nephrology (Dr. Garcia / Dr. Payne) following; appreciate their input Bilateral LE edema - possibly 2/2 dependent edema, possibly 2/2 CHF - Does not complain of any shortness of breath - Lungs auscultation is clear - ECHO pending s/p Hypokalemia s/p Hyponatremia DVT prophylaxis - c/w Heparin VS,Fishbone, I+O VS, Fishbone, I+O Laboratory Tests 03/16/17 05:26 Red Blood Count 3.61 L, Mean Corpuscular Volume 89.5, Mean Corpuscular Hemoglobin 28.8, Mean Corpuscular Hemoglobin Concent 32.2, Red Cell Distribution Width 14.8 H, Neutrophils (%) (Auto) 78.4 H, Lymphocytes (%) (Auto ) 7.8 L, Monocytes (%) (Auto) 11.2 H, Eosinophils (%) (Auto) 0.2, Basophils (%) (Auto) 0.3, Neutrophils # (Auto) 10.5 H, Lymphocytes # (Auto) 1.0 L, Monocytes # (Auto) 1.5 H, Eosinophils # (Auto) 0.0, Basophils # (Auto) 0.0, Calcium Level 8.3 L, Aspartate Amino Transf (AST/SGOT) 34, Alanine Aminotransferase (ALT/SGPT ) 50, Alkaline Phosphatase 130 H, Total Bilirubin 0.8, Total Protein 6.1 L, Albumin 2.3 L Vital Signs Date Time Temp Pulse Resp B/P (MAP) Pulse Ox O2 Delivery O2 Flow Rate FiO2 03/16/17 12:04 20 03/16/17 10:00 99.8 97 164/75 (104) 99 Room Air I&O- Last 24 Hours up to 6 AM 03/17/17 06:00 Intake Total 480 ml Output Total 800 ml Balance -320 ml DANIEL DENNY MD Mar 16, 2017 13:14
[2017-03-16] MEDS: VANCOMYCIN HCL 1,000 MG, VIAL MATE ADAPTER 1 EACH in D5W 250 ML IV SCH (13:16)
[2017-03-16 14:00] VITALS: BP 140/60
[2017-03-16 18:00] VITALS: BP 134/70
[2017-03-16 22:00] VITALS: BP 129/82
[2017-03-17] MEDS: PIPERACILLIN/TAZOBACTAM SOD 2.25 GM in D5W 50 ML IV SCH ×2 (03:56→11:51)
[2017-03-17] MEDS: FIORICET TAB PO PRN ×4 (04:03→18:32)
[2017-03-17] MEDS: ACETAMINOPHEN TAB 650MG DOSE (2X325MG) PO PRN ×2 (04:56→10:37)
[2017-03-17] MEDS: HEPARIN SOD (PORCINE) 5000 UNITS/ML VIAL SC SCH ×3 (05:42→21:15)
[2017-03-17 06:47] LABS: BASO % 0.2 % (0.0-1.0); EOS % 0.2 % (0.0-3.0); IMMATURE GRANULOCYTE % 3.2 % (0-0); LYMPH # 1.1 10^3/uL (1.5-4.5); LYMPH % 8.7 % (24.0-44.0); MEAN CORPUSCULAR HEMOGLOBIN 28.5 pg (27.0-33.0); MEAN CORPUSCULAR HGB CONC 31.4 g/dl (32.0-36.5); MEAN CORPUSCULAR VOLUME 90.8 fl (80.0-96.0); MONO # 1.5 10^3/uL (0.0-0.8); MONO % 11.9 % (0.0-5.0); NEUTROPHILS # 9.4 10^3/uL (1.8-7.7); NEUTROPHILS % 75.8 % (36.0-66.0); PLATELET COUNT, AUTOMATED 285 10^3/uL (150-450); RED CELL DISTRIBUTION WIDTH 14.7 % (11.5-14.5); WHITE BLOOD COUNT 12.4 10^3/uL (4.0-10.0)
[2017-03-17 06:49] VITALS: BP 144/64
[2017-03-17 07:26] LABS: ALBUMIN 2.1 GM/DL (3.2-5.2); ALBUMIN/GLOBULIN RATIO 0.45 (1.00-1.93); ALKALINE PHOSPHATASE 106 U/L (45-117); ALT/SGPT 42 U/L (12-78); ANION GAP 6 MEQ/L (8-16); AST/SGOT 24 U/L (15-37); BILIRUBIN,TOTAL 0.7 MG/DL (0.2-1.0); BLOOD UREA NITROGEN 24 MG/DL (7-18); CALCIUM LEVEL 8.3 MG/DL (8.5-10.1); CARBON DIOXIDE LEVEL 28 MEQ/L (21-32); CHLORIDE LEVEL 103 MEQ/L (98-107); CREATININE FOR GFR 1.26 MG/DL (0.70-1.30); GLOMERULAR FILTRATION RATE > 60.0 (>60); GLUCOSE, FASTING 103 MG/DL (70-105); POTASSIUM SERUM 3.5 MEQ/L (3.5-5.1); SODIUM LEVEL 137 MEQ/L (136-145); TOTAL PROTEIN 6.8 GM/DL (6.4-8.2)
[2017-03-17 07:27] LABS: MAGNESIUM LEVEL 2.2 MG/DL (1.8-2.4)
[2017-03-17 10:00] VITALS: BP 152/67
[2017-03-17] MEDS: NS 1,000 ML IV SCH ×2 (10:01→20:12)
[2017-03-17 10:51] VITALS: BP 120/64
[2017-03-17] MEDS ORDERED: POTASSIUM CHLORIDE 10 MEQ SR TABLET PO ONE (11:00)
--- NOTE | 2017-03-17 12:17 | IPNPDOC ---
Text Note Date of Service The patient was seen on 03/17/17. NOTE Subjective: Patient is a 36 year old male with no reported PMHx who presented to the ER with complaints of left lower extremity swelling, pain and redness. Admitted for left leg cellulitis. Patient was seen and examined at the bedside. He notes resolution of his migraine headache. He notes that his leg continues to have drainage, but notes the redness and swelling have been improving. Objective: Vitals (See below) General: Lying in bed, no acute distress, comfortable, AAOx3 HEENT: NC, AT CVS: RRR, +S1S2 Lungs: Fair air entry b/l, -w/r/r Abdomen: Soft, ND, NT, Obese Extremities: 1+ pitting edema bilaterally, - Calf tenderness Skin: Left leg extending to medial aspect of thigh with anterior redness, erythema, tenderness and drainage - showing signs of improvement Assessment and plan: Cellulitis of Left leg - failed outpatient therapy - Presented with pain, swelling and redness of left leg; denies any trauma / bug bites - Leukocytosis has show elevation, CRP continues to improve - Blood culture 03/14: Gram Positive Rods (1 of 2); Repeat cultures 03/15: Negative at 48 hours - Wound Culture 03/14: MSSA - Duplex US 03/14: negative for DVT - CT pelvis and lower extremities 03/15: No evidence of fluid collection or osteomyelitis - Start Nafcillin (Day # 4 of antibiotics); s/p Vancomycin and Zosyn (Received 3 day course); s/p Ceftaroline (Received 1 day course) s/p Headache - likely 2/2 migraine headache - CT scan head 03/15: Negative - c/w Fioricet PRN at adjusted dose Acute kidney injury - likely 2/2 intra-renal etiology, possibly pre-renal etiology - Cr on Monday (03/12) was noted to be 1.64; on admission was 3.44 - Cr has trended down and there remains to be any electrolyte abnormalities - FENa of 0.4%; Renal US 03/14: no evidence of hydronephrosis - c/w IV fluid hydration with NS and avoid nephrotoxic medications (Will dc Vancomycin) - Nephrology (Dr. Garcia / Dr. Payne) following; appreciate their input Bilateral LE edema - possibly 2/2 dependent edema, possibly 2/2 CHF - Does not complain of any shortness of breath - Lungs auscultation is clear - ECHO report pending s/p Hypokalemia s/p Hyponatremia DVT prophylaxis - c/w Heparin VS,Fishbone, I+O VS, Fishbone, I+O Laboratory Tests 03/17/17 06:39 Red Blood Count 3.47 L, Mean Corpuscular Volume 90.8, Mean Corpuscular Hemoglobin 28.5, Mean Corpuscular Hemoglobin Concent 31.4 L, Red Cell Distribution Width 14.7 H, Neutrophils (%) (Auto) 75.8 H, Lymphocytes (%) (Auto ) 8.7 L, Monocytes (%) (Auto) 11.9 H, Eosinophils (%) (Auto) 0.2, Basophils (%) (Auto) 0.2, Neutrophils # (Auto) 9.4 H, Lymphocytes # (Auto) 1.1 L, Monocytes # (Auto) 1.5 H, Eosinophils # (Auto) 0.0, Basophils # (Auto) 0.0 03/17/17 06:40 Calcium Level 8.3 L, Aspartate Amino Transf (AST/SGOT) 24, Alanine Aminotransferase (ALT/SGPT) 42, Alkaline Phosphatase 106, Total Bilirubin 0.7, Total Protein 6.8, Albumin 2.1 L Vital Signs Date Time Temp Pulse Resp B/P (MAP) Pulse Ox O2 Delivery O2 Flow Rate FiO2 03/17/17 10:51 120/64 (82) 03/17/17 10:30 19 03/17/17 10:00 100.0 91 98 Room Air I&O- Last 24 Hours up to 6 AM 03/18/17 06:00 Intake Total 2200 ml Output Total 1200 ml Balance 1000 ml DANIEL DENNY MD Mar 17, 2017 12:17
--- NOTE | 2017-03-17 13:46 | IPN ---
DATE: 03/16/2017 SUBJECTIVE: The patient is seen this morning at the bedside. He continues to complain of intense pounding frontal headache and is in distress secondary to the same. He has continued to spike fevers overnight. T-max was 101.8. The patient continues on IV fluids with normal saline and his antibiotic coverage was expanded to include vancomycin and Zosyn. He had a CT scan of his pelvis and left lower extremity yesterday, which did not reveal any discernible fluid collection. His headache has improved with Fioricet. REVIEW OF SYSTEMS: Positive for fevers, headache, left lower extremity tenderness, pain, swelling and drainage. Review of systems is negative for nausea, vomiting, diarrhea, chest pain shortness of breath, abdominal discomfort , dysuria. The remainder of review of systems is negative. VITAL SIGNS: Temperature T-max 101.8, current 99.8, pulse 97, respiratory rate 20, blood pressure 140/60, saturating 95% on room air. Intake and output: Urine output yesterday was 4800 mL. Weight on the bed scale today is 175.1 kg. The patient is in a positive fluid balance 930 mL. PHYSICAL EXAMINATION: The patient is seen at the bedside. His eyes are closed. He has his hand on his forehead and complains of frontal headache, appears unremarkable. Oriented times three. Extraocular muscles are intact. Pupils are round and reactive. CARDIAC : S1, S2. Regular rate and rhythm. 2+ radial pulse. Trace edema in the right lower extremity. LUNGS: Symmetric air entry bilaterally. Comfortable on room air in no respiratory distress. ABDOMEN: Soft, obese, nontender. EXTREMITIES: Left lower extremity with dressings in place from the ankle to the calf. The medial aspect of the thigh has induration, tenderness, erythema and drainage extending toward the groin. Inguinal adenopathy is present. NEUROLOGIC: No focal deficits. PSYCHIATRIC: Appropriate mood and affect. LABS: White count 13.3, hemoglobin 10.4, platelet 262. Sodium 137, potassium 3.7, bicarbonate 24, BUN 34, creatinine 1.8. Corrected calcium 9.7, magnesium 2.2, CRP down trending 20, vancomycin random level 9.4. Blood cultures 03/15/2017 no growth times two sets. Wound culture methicillin sensitive Staphylococcus aureus (MSSA). Blood cultures 03/14/2017 gram positive rods in one out of two sets. Inpatient medications reviewed by myself. The patient continues on normal saline at 100 mL an hour, Zosyn 2.25 IV every 8, vancomycin 1 gram daily. Fioricet as needed, Tylenol as needed, heparin 5000 units subcu every 8 and Percocet as needed. There are no other changes in the medications. ASSESSMENT/PLAN: 1. Nonoliguric acute renal failure secondary to excessive NSAID use in the setting of cellulitis with high grade fevers, reported diarrhea and decreased oral intake. The patient's renal function continues to improve. His baseline renal function is uncertain. He continues on normal saline at 100 mL an hour and I would continue him on IV fluids while he continues to spike high-grade temperatures from severe cellulitis. He is likely in the polyuric phase of renal recovery and we will monitor his serum sodium. 2. Left lower extremity cellulitis with MSSA: The patient continues to have fever spikes. He is on renally dosed vancomycin and Zosyn per the primary team. He will receive another gram of vancomycin today, which is appropriate given his random vancomycin level was 9.4. His CRP is down-trending. Low CT scan of the lower extremity did not reveal any discernible fluid collections. 3. Headaches. The patient denies prior episodes of migraine or intense headaches similar to what he his currently experiencing. He did have a CT scan of the head that had no acute findings and he continues with pain medications as needed. Plan of care is discussed with Dr. Nguyễn. MAGY
[2017-03-17 14:00] VITALS: BP 135/62
[2017-03-17 18:00] VITALS: BP 133/68
[2017-03-17 20:10] VITALS: BP 122/72
[2017-03-17] MEDS: NAFCILLIN SOD 2 GM in D5W MINI-BAG PLUS 100 ML IV SCH (20:12)
--- NOTE | 2017-03-17 20:43 | ECHO ---
DATE OF PROCEDURE: 03/16/2017 REFERRING PHYSICIAN: Dr. Abraham Nguyễn INDICATION: Peripheral edema. HEIGHT: 165 cm WEIGHT: 160 kg. 2D MEASUREMENTS: Left atrium: 4.4 cm Ventricular septum: 1.26 cm Posterior wall: 1.18 cm Left ventricle diastole: 4.9 cm LVOT: 2.8 cm Aortic root: 3.5 cm Inferior vena cava: 2.1 cm DOPPLER MEASUREMENTS: Mitral E velocity: 85.7 cm/s Mitral A velocity: 58.4 cm/s Mitral deceleration time: 236 ms Pulmonary artery systolic pressure: 33 mmHg by pulmonary acceleration time method. MITRAL ANNULAR TISSUE DOPPLER: E prime septal: 10.6 cm/s E prime lateral: 11.5 cm/s DESCRIPTION: Rhythm was sinus. This was a technically difficult echocardiogram. No pericardial effusion. CONCLUSIONS: 1. Normal left ventricle size. Borderline concentric left ventricular hypertrophy. Normal regional LV wall motion and wall thickening. Normal LV systolic function. Left ventricular ejection fraction (LVEF) 70% by visual estimate. Normal LV diastolic function. 2. Mild left atrial dilatation. 3. Suggestive of very mild elevation of pulmonary artery systolic pressure. 4. Technically difficult echocardiogram.
[2017-03-18] MEDS: NAFCILLIN SOD 2 GM in D5W MINI-BAG PLUS 100 ML IV SCH ×7 (00:08→22:40)
[2017-03-18] MEDS: PERCOCET 5MG/325MG TAB PO PRN ×2 (01:55→22:06)
[2017-03-18 02:50] VITALS: BP 132/78
[2017-03-18] MEDS: NS 1,000 ML IV SCH (03:58)
[2017-03-18 05:30] VITALS: BP 128/80
[2017-03-18] MEDS: FIORICET TAB PO PRN ×3 (05:35→18:57)
[2017-03-18] MEDS: HEPARIN SOD (PORCINE) 5000 UNITS/ML VIAL SC SCH ×3 (05:35→22:05)
[2017-03-18 05:56] LABS: BASO % 0.1 % (0.0-1.0); EOS % 0.4 % (0.0-3.0); IMMATURE GRANULOCYTE % 4.6 % (0-0); LYMPH # 1.4 10^3/uL (1.5-4.5); LYMPH % 11.9 % (24.0-44.0); MEAN CORPUSCULAR HEMOGLOBIN 28.9 pg (27.0-33.0); MEAN CORPUSCULAR HGB CONC 31.3 g/dl (32.0-36.5); MEAN CORPUSCULAR VOLUME 92.2 fl (80.0-96.0); MONO # 1.2 10^3/uL (0.0-0.8); MONO % 10.9 % (0.0-5.0); NEUTROPHILS # 8.2 10^3/uL (1.8-7.7); NEUTROPHILS % 72.1 % (36.0-66.0); PLATELET COUNT, AUTOMATED 290 10^3/uL (150-450); RED CELL DISTRIBUTION WIDTH 14.5 % (11.5-14.5); WHITE BLOOD COUNT 11.4 10^3/uL (4.0-10.0)
[2017-03-18 06:19] LABS: ALBUMIN 1.9 GM/DL (3.2-5.2); ALBUMIN/GLOBULIN RATIO 0.43 (1.00-1.93); ALKALINE PHOSPHATASE 94 U/L (45-117); ALT/SGPT 36 U/L (12-78); ANION GAP 7 MEQ/L (8-16); AST/SGOT 21 U/L (7-37); BILIRUBIN,TOTAL 0.9 MG/DL (0.2-1.0); BLOOD UREA NITROGEN 17 MG/DL (7-18); CALCIUM LEVEL 8.3 MG/DL (8.5-10.1); CARBON DIOXIDE LEVEL 27 MEQ/L (21-32); CHLORIDE LEVEL 104 MEQ/L (98-107); CREATININE FOR GFR 1.14 MG/DL (0.70-1.30); GLOMERULAR FILTRATION RATE > 60.0 (>60); GLUCOSE, FASTING 115 MG/DL (70-105); MAGNESIUM LEVEL 1.9 MG/DL (1.8-2.4); POTASSIUM SERUM 3.9 MEQ/L (3.5-5.1); SODIUM LEVEL 138 MEQ/L (136-145); TOTAL PROTEIN 6.3 GM/DL (6.4-8.2)
[2017-03-18 10:00] VITALS: BP 138/77
--- NOTE | 2017-03-18 12:19 | IPN ---
DATE: 03/17/2017 SUBJECTIVE: The patient is seen this morning at the bedside. He feels much better as compared to prior. His headache is resolved at present. Tolerating oral intake well. Complains of pain at the left lower extremity cellulitis site but otherwise denies any complaints at present. T-max overnight was 101 degrees. REVIEW OF SYSTEMS: Positive for fever, negative for chest pain, palpitations, shortness of breath, nausea, vomiting, diarrhea, dysuria. Positive for left lower extremity pain and resolved headache. VITAL SIGNS: T-max 101. T-current 100.9. Pulse 95, respiratory rate 20, blood pressure 144/64, saturating 96 to 98% on room air. Intake and output: Urine output yesterday 4750 mL. The patient is in a 24 hour equivalent fluid balance. No recorded bowel movements yesterday. GENERAL: The patient is seen out of bed to the chair. He looks clinically much better as compared to the past couple of days. Is well groomed this morning and is not in any pain from headache. HEAD AND NECK: Extraocular muscles are intact. Moist mucous membranes. Neck is supple. CARDIAC: S1, S2, 2+ radial pulse. LUNGS: Distant air entry. Symmetrical bilaterally. Comfortable on room air. ABDOMEN: Soft, obese, nontender. EXTREMITIES: Left lower extremity in dressings. Erythema and induration extends to the medial inner thigh. There is weeping present from the left extremity. Right extremity trace edema, otherwise unremarkable. PSYCHIATRIC: Normal. Appropriate mood and affect. NEUROLOGICAL: No focal deficits. LABS: White count 12.4, hemoglobin 9.9, platelets 285. Sodium 137, potassium 3.5, bicarbonate 28, BUN 24, creatinine 1.2. CRP down trending 16.8. Magnesium 2.2. Microbiology: Blood cultures 03/15/2017 with no growth. INPATIENT MEDICATIONS: Reviewed by myself. The patient's vancomycin and Zosyn were discontinued by the primary team today and he is started on Nafcillin 2 grams IV every 4. He continues on normal saline at 100 mL an hour. He received a one time dose of potassium today. Remainder of medications are unchanged from prior problems. 1. Nonoliguric acute renal failure secondary to excessive NSAID use in the setting of cellulitis with high grade fevers and decreased oral intake. The patient's renal function is improving nicely on IV fluids. He is polyuric at present. I will continue him on normal saline for 24 more hours and likely discontinue tomorrow. 2. Left lower extremity cellulitis with MSSA. Vancomycin and Zosyn have been discontinued per the primary team and patient is now on nafcillin. His CRP is down trending. CT scan of the lower extremity did not reveal any discernible fluid collections. He continues with local wound care. 3. Headaches. The patient's intense headache is resolved at present at the time of my visit. He continues with as needed medications.
--- NOTE | 2017-03-18 12:22 | IPNPDOC ---
Text Note Date of Service The patient was seen on 03/18/17. NOTE Subjective: Patient is a 36 year old male with no reported PMHx who presented to the ER with complaints of left lower extremity swelling, pain and redness. Admitted for left leg cellulitis. Patient was seen and examined at the bedside. He notes that he feels a lot better than when he got to the ER. He denies any current headache. He notes that his leg stinging has improved. The redness has improved. He did note some left sided scrotal swelling. I advised him that we will get an US to evaluate. Objective: Vitals (See below) General: Lying in bed, no acute distress, comfortable, AAOx3 HEENT: NC, AT CVS: RRR, +S1S2 Lungs: Fair air entry b/l, -w/r/r Abdomen: Soft, ND, NT, Obese Extremities: 1+ pitting edema bilaterally, - Calf tenderness Skin: Left leg in dressing, left medial thigh with redness / warmth / tenderness improving Assessment and plan: Cellulitis of Left leg - failed outpatient therapy - Presented with pain, swelling and redness of left leg; denies any trauma / bug bites - Leukocytosis continues , CRP continues to improve - Blood culture 03/14: Gram Positive Rods (1 of 2); Repeat cultures 03/15: Negative at 48 hours - Wound Culture 03/14: MSSA - Duplex US 03/14: Negative for DVT - CT pelvis and lower extremities 03/15: No evidence of fluid collection or osteomyelitis - c/w Nafcillin (Day # 5 of antibiotics); s/p Vancomycin and Zosyn (Received 3 day course); s/p Ceftaroline (Received 1 day course) Mild scrotal swelling - possibly 2/2 hydrocele - No evidence of erythema / warmth / tenderness of scrotal wall - Will get US of scrotum to evaluate for abscess / fluid collection s/p Headache - likely 2/2 [address] - [address] scan head 03/15: Negative - c/w Fioricet PRN at adjusted dose Acute kidney injury - likely 2/2 intra-renal etiology, possibly pre-renal etiology - Cr on admission was 3.44; has trended down continuously - FENa of 0.4%; Renal US 03/14: no evidence of hydronephrosis - c/w IV fluid hydration - Nephrology (Dr. Garcia / Dr. Payne) were consulted Bilateral LE edema - possibly 2/2 dependent edema, possibly 2/2 CHF - Does not complain of any shortness of breath - Lungs auscultation is clear - ECHO 03/17: Normal systolic and diastolic function s/p Hypokalemia s/p Hyponatremia DVT prophylaxis - c/w Heparin VS,Fishbone, I+O VS, Fishbone, I+O Laboratory Tests 03/18/17 05:24 Red Blood Count 3.22 L, Mean Corpuscular Volume 92.2, Mean Corpuscular Hemoglobin 28.9, Mean Corpuscular Hemoglobin Concent 31.3 L, Red Cell Distribution Width 14.5, Neutrophils (%) (Auto) 72.1 H, Lymphocytes (%) (Auto) 11.9 L, Monocytes (%) (Auto) 10.9 H, Eosinophils (%) (Auto) 0.4, Basophils (%) ( Auto) 0.1, Neutrophils # (Auto) 8.2 H, Lymphocytes # (Auto) 1.4 L, Monocytes # ( Auto) 1.2 H, Eosinophils # (Auto) 0.0, Basophils # (Auto) 0.0, Calcium Level 8.3 L, Aspartate Amino Transf (AST/SGOT) 21, Alanine Aminotransferase (ALT/SGPT ) 36, Alkaline Phosphatase 94, Total Bilirubin 0.9, Total Protein 6.3 L, Albumin 1.9 L Vital Signs Date Time Temp Pulse Resp B/P (MAP) Pulse Ox O2 Delivery O2 Flow Rate FiO2 03/18/17 10:02 18 Room Air 03/18/17 10:00 98.0 80 138/77 (97) 98 I&O- Last 24 Hours up to 6 AM 03/19/17 06:00 Intake Total 1300 ml Output Total 475 ml Balance 825 ml DANIEL DENNY MD Mar 18, 2017 12:22
[2017-03-18 14:00] VITALS: BP 147/70
--- NOTE | 2017-03-18 14:43 | REP ---
Scrotal sonography: History: Cellulitis and swelling. Findings: High-resolution bilateral scrotal sonography is compared with the prior study from January 27, 2009. Findings: There is some scrotal wall thickening on the right compared to the left, 8 mm. There is a small right-sided hydrocele. No intratesticular mass lesion is seen. Doppler flow is confirmed to both testes. Right testicular dimensions are 4.4 x 2.8 x 2.9 cm. Left testis measures 4.7 x 3.7 x 2.3 cm. Resistive indices in the testes are 0.44 and 0.65 on the right and left respectively by Doppler. Right testis shows slightly hyperemic flow. Impression: Right scrotal wall edema. Small right hydrocele. No intratesticular lesion seen. Normal Doppler flow to both testes. Signed by Osmel Gillespie MD 03/18/2017 04:52 P
--- NOTE | 2017-03-18 15:57 | IPN ---
DATE: 03/18/2017 SUBJECTIVE: Patient was seen and examined at the bedside today morning. He was actually sitting in the sofa. He reports that he is feeling better now. He continues to be on IV fluids at this time. He is tolerating the IV antibiotics. Renal function continues to improve. Creatinine is down to 1.1 today. Patient reports persistent left leg edema and tenderness. REVIEW OF SYSTEMS: Patient denies any fevers, chills, rigors. He does report headache, but the episodes are decreasing right now. He denies any chest pain or shortness of breath. He denies any pain in abdomen, constipation, or diarrhea. Patient does report left leg swelling, pain, and tenderness. Rest of review of systems is negative. OBJECTIVE: VITAL SIGNS: Temperature is 98 degrees Fahrenheit, blood pressure is 138/77, pulse 80, respiratory rate of 18, saturating 98% on room air. Intake and output: Urine output recorded is 2.7 liters yesterday and 1.1 liters so far today since overnight. Weight in the bed scale is not available. PHYSICAL EXAMINATION: GENERAL: Patient is awake, alert, oriented times three, sitting in the sofa, morbidly obese, no apparent distress. HEAD and NECK EXAM: Extraocular muscles intact. Pupils equally round and reactive to light. Neck is supple, there is no jugular venous distention (JVD). CARDIOVASCULAR: S1, S2, regular rate. No murmur, rub, or gallop. RESPIRATORY: Lungs are clear to auscultation bilaterally. Decreased air entry at the bases. ABDOMEN: Soft, positive bowel sounds, nontender. No organomegaly was appreciated because of patient's body habitus. MUSCULOSKELETAL: Patient's left leg is covered in dressing and below the dressings I could see the erythema on the left leg. Patient also has erythema in the left inner thigh as well. CENTRAL NERVOUS SYSTEM: No focal neurological deficit. Power is 5/5 in all extremities. PSYCHIATRIC: Normal mood and affect. LABORATORY REVIEW: CBC showed WBC 11.4, hemoglobin 9.3, platelets 290. BMP showed sodium 138, potassium 3.9, chloride 104, bicarbonate 27, BUN 17, creatinine 1.1, calcium 8.3, albumin 1.9. Microbiology: Blood cultures are negative so far from 03/15/2017. IMAGING: Ultrasound of the scrotum was done today, report is pending. CURRENT INPATIENT MEDICATIONS: Patient's medications were all reviewed by me. His IV normal saline was stopped by me today morning. He continues to be on IV nafcillin and Percocet has been stopped. ASSESSMENT: 36-year-old male with morbid obesity, this admission with left leg cellulitis. Nephrology service following the patient for acute kidney injury. PLAN: 1. Acute kidney injury. The patient's acute kidney injury (FADY) was secondary to cellulitis, dehydration, and excessive use of nonsteroidal anti-inflammatory drugs (NSAIDs). Renal function continues to improve. Creatinine is down to 1.1. I have stopped his IV normal saline today. Continue to encourage oral hydration. 2. Left leg cellulitis, secondary to methicillin-sensitive Staphylococcus aureus. Patient continues to be on IV nafcillin. He is symptomatically getting better. Continue the wound care. Rest of the management is as per primary team. 3. Headache. The patient's headaches are getting better now. His blood pressure is acceptable and his IV fluids have been held. Patient's renal function is improving. IV fluids have been stopped. His cellulitis is being treated with IV penicillin. Nephrology service will sign off at this moment. Please call nephrology service as needed for any help in the management of this patient.
[2017-03-18 22:00] VITALS: BP 135/73
[2017-03-19] VITALS (7 sets, daily range): BP systolic 118–136; BP diastolic 60–81
[2017-03-19] MEDS: NAFCILLIN SOD 2 GM in D5W MINI-BAG PLUS 100 ML IV SCH ×6 (03:06→23:01)
[2017-03-19] MEDS: PERCOCET 5MG/325MG TAB PO PRN ×4 (04:07→21:57)
[2017-03-19 06:00] LABS: BASO % 0.2 % (0.0-1.0); EOS # 0.1 10^3/uL (0.0-0.50); EOS % 0.6 % (0.0-3.0); IMMATURE GRANULOCYTE % 2.1 % (0-0); LYMPH # 1.1 10^3/uL (1.5-4.5); LYMPH % 10.4 % (24.0-44.0); MEAN CORPUSCULAR HEMOGLOBIN 27.9 pg (27.0-33.0); MEAN CORPUSCULAR HGB CONC 30.5 g/dl (32.0-36.5); MEAN CORPUSCULAR VOLUME 91.5 fl (80.0-96.0); MONO # 0.9 10^3/uL (0.0-0.8); MONO % 8.7 % (0.0-5.0); NEUTROPHILS # 8.3 10^3/uL (1.8-7.7); PLATELET COUNT, AUTOMATED 323 10^3/uL (150-450); RED CELL DISTRIBUTION WIDTH 14.3 % (11.5-14.5); WHITE BLOOD COUNT 10.7 10^3/uL (4.0-10.0)
[2017-03-19 06:09] LABS: ALBUMIN 1.9 GM/DL (3.2-5.2); ALBUMIN/GLOBULIN RATIO 0.44 (1.00-1.93); ALKALINE PHOSPHATASE 87 U/L (45-117); ALT/SGPT 41 U/L (12-78); ANION GAP 9 MEQ/L (8-16); AST/SGOT 24 U/L (7-37); BILIRUBIN,TOTAL 0.7 MG/DL (0.2-1.0); BLOOD UREA NITROGEN 14 MG/DL (7-18); CALCIUM LEVEL 8.1 MG/DL (8.5-10.1); CARBON DIOXIDE LEVEL 25 MEQ/L (21-32); CHLORIDE LEVEL 103 MEQ/L (98-107); CREATININE FOR GFR 0.94 MG/DL (0.70-1.30); GLOMERULAR FILTRATION RATE > 60.0 (>60); GLUCOSE, FASTING 101 MG/DL (70-105); MAGNESIUM LEVEL 1.7 MG/DL (1.8-2.4); POTASSIUM SERUM 3.8 MEQ/L (3.5-5.1); SODIUM LEVEL 137 MEQ/L (136-145); TOTAL PROTEIN 6.2 GM/DL (6.4-8.2)
[2017-03-19] MEDS: HEPARIN SOD (PORCINE) 5000 UNITS/ML VIAL SC SCH ×3 (06:39→21:57)
[2017-03-19] MEDS: FIORICET TAB PO PRN (09:24)
[2017-03-19] MEDS: SILVER SULFADIAZINE 1% CR 50 GM JAR TOP SCH ×2 (11:18→21:59)
--- NOTE | 2017-03-19 11:48 | IPNPDOC ---
Text Note Date of Service The patient was seen on 03/19/17. NOTE Subjective: Patient is a 36 year old male with no reported PMHx who presented to the ER with complaints of left lower extremity swelling, pain and redness. Admitted for left leg cellulitis. Patient was seen and examined at the bedside. He continues to feel better. Has noted that he does have a migraine headache this morning. He describes his legs as more weepy and there are more blisters present. He has remained afebrile over the last 24 hours. Objective: Vitals (See below) General: Lying in bed, no acute distress, comfortable, AAOx3 HEENT: NC, AT CVS: RRR, +S1S2 Lungs: Fair air entry b/l, -w/r/r Abdomen: Soft, ND, NT, Obese Extremities: 1+ pitting edema bilaterally, - Calf tenderness Skin: Left leg in dressing, left medial thigh with redness / warmth / tenderness improving; increased drainage and blisters present Assessment and plan: Cellulitis of Left leg - failed outpatient therapy - Presented with pain, swelling and redness of left leg; denies any trauma / bug bites - Leukocytosis improving , CRP remains stable - Blood culture 03/14: Gram Positive Rods (1 of 2); Repeat cultures 03/15: Negative at 72 hours - Wound Culture 03/14: MSSA - Duplex US 03/14: Negative for DVT - CT pelvis and lower extremities 03/15: No evidence of fluid collection or osteomyelitis - c/w Nafcillin (Day # 6 of antibiotics); s/p Vancomycin and Zosyn (Received 3 day course); s/p Ceftaroline (Received 1 day course) - Discussed with Surgery; will have them evaluate for any possible intervention Mild scrotal swelling - possibly 2/2 hydrocele - No evidence of erythema / warmth / tenderness of scrotal wall - US scrotum 03/18: Right scrotal wall thickening, small right sided hydrocele Headache - likely 2/[address] - [address] scan head 03/15: Negative - c/w Fioricet PRN at adjusted dose s/p Acute kidney injury - likely 2/2 intra-renal etiology, possibly pre-renal etiology - Cr on admission was 3.44; has trended down to normal - FENa of 0.4%; Renal US 03/14: no evidence of hydronephrosis - s/p IV fluid hydration - Nephrology (Dr. Garcia / Dr. Payne) were consulted Bilateral LE edema - possibly 2/2 dependent edema - Does not complain of any shortness of breath - Lungs auscultation is clear - ECHO 03/17: Normal systolic and diastolic function s/p Hypokalemia s/p Hyponatremia DVT prophylaxis - c/w Heparin VS,Fishbone, I+O VS, Fishbone, I+O Laboratory Tests 03/19/17 05:29 Red Blood Count 3.40 L, Mean Corpuscular Volume 91.5, Mean Corpuscular Hemoglobin 27.9, Mean Corpuscular Hemoglobin Concent 30.5 L, Red Cell Distribution Width 14.3, Neutrophils (%) (Auto) 78.0 H, Lymphocytes (%) (Auto) 10.4 L, Monocytes (%) (Auto) 8.7 H, Eosinophils (%) (Auto) 0.6, Basophils (%) ( Auto) 0.2, Neutrophils # (Auto) 8.3 H, Lymphocytes # (Auto) 1.1 L, Monocytes # ( Auto) 0.9 H, Eosinophils # (Auto) 0.1, Basophils # (Auto) 0.0, Calcium Level 8.1 L, Aspartate Amino Transf (AST/SGOT) 24, Alanine Aminotransferase (ALT/SGPT ) 41, Alkaline Phosphatase 87, Total Bilirubin 0.7, Total Protein 6.2 L, Albumin 1.9 L Vital Signs Date Time Temp Pulse Resp B/P (MAP) Pulse Ox O2 Delivery O2 Flow Rate FiO2 03/19/17 10:00 98.9 92 18 130/70 (90) 97 Room Air I&O- Last 24 Hours up to 6 AM 03/20/17 06:00 Intake Total 360 ml Output Total 275 ml Balance 85 ml DANIEL DENNY MD Mar 19, 2017 11:47
[2017-03-19] MEDS: diphenhydrAMINE CREAM 30GM TOP PRN (14:12)
[2017-03-19] MEDS ORDERED: MAG SULF 1GM/100ML (MAG RUN) 1 GM in APPROPRIATE DILUENT 1 EA IV ONE (17:30)
[2017-03-19] MEDS ORDERED: ONDANSETRON 4MG/2ML VIAL (J2405) IV PRN (17:45)
[2017-03-19] MEDS ORDERED: GI COCKTAIL 50ML BTL(HYOSCYAMINE/MAALOX/LIDOCAINE VISCOUS)(1:3:1) PO ONE (18:00)
[2017-03-19] MEDS: PANTOPRAZOLE 40MG INJ (PROTONIX) (C9113) IV SCH (18:19)
--- NOTE | 2017-03-19 18:55 | ECGEPIP ---
Stationary ECG Study [facility] Test Date: 2017-03-19 Pat Name: ANUJA LOPEZ Department: Room: [place] [address] Gender: M [employer]quis[employer] Editor: : 1980 Requested By: DANIEL DENNY Order Number: [id number] Reading MD: Jose Manuel Rodas Measurements Intervals [place] Rate: 90 P: 33 HI: 146 QRS: 61 QRSD: 96 T: 28 QT: 315 QTc: 387 Interpretive Statements SINUS RHYTHM Within normal limits. No prior ECG available for comparison at the time of interpretation. Electronically Signed On 03-19-2017 18:54:24 EDT by Jose Manuel Rodas
[2017-03-20 02:00] VITALS: BP 118/80
[2017-03-20] MEDS: NAFCILLIN SOD 2 GM in D5W MINI-BAG PLUS 100 ML IV SCH ×6 (02:58→23:22)
[2017-03-20 05:52] LABS: BASO % 0.2 % (0.0-1.0); EOS # 0.1 10^3/uL (0.0-0.50); EOS % 0.6 % (0.0-3.0); IMMATURE GRANULOCYTE % 1.6 % (0-0); LYMPH # 1.1 10^3/uL (1.5-4.5); LYMPH % 11.6 % (24.0-44.0); MEAN CORPUSCULAR HEMOGLOBIN 28.5 pg (27.0-33.0); MEAN CORPUSCULAR VOLUME 91.8 fl (80.0-96.0); MONO # 0.8 10^3/uL (0.0-0.8); NEUTROPHILS # 7.2 10^3/uL (1.8-7.7); PLATELET COUNT, AUTOMATED 308 10^3/uL (150-450); WHITE BLOOD COUNT 9.3 10^3/uL (4.0-10.0)
[2017-03-20 06:00] VITALS: BP 138/72
[2017-03-20 06:10] LABS: ALBUMIN 1.7 GM/DL (3.2-5.2); ALBUMIN/GLOBULIN RATIO 0.39 (1.00-1.93); ALKALINE PHOSPHATASE 80 U/L (45-117); ALT/SGPT 39 U/L (12-78); ANION GAP 8 MEQ/L (8-16); AST/SGOT 21 U/L (7-37); BILIRUBIN,TOTAL 0.6 MG/DL (0.2-1.0); BLOOD UREA NITROGEN 12 MG/DL (7-18); CALCIUM LEVEL 8.3 MG/DL (8.5-10.1); CARBON DIOXIDE LEVEL 29 MEQ/L (21-32); CHLORIDE LEVEL 101 MEQ/L (98-107); CREATININE FOR GFR 0.87 MG/DL (0.70-1.30); GLOMERULAR FILTRATION RATE > 60.0 (>60); GLUCOSE, FASTING 100 MG/DL (70-105); MAGNESIUM LEVEL 2.1 MG/DL (1.8-2.4); POTASSIUM SERUM 4.2 MEQ/L (3.5-5.1); SODIUM LEVEL 138 MEQ/L (136-145); TOTAL PROTEIN 6.1 GM/DL (6.4-8.2)
[2017-03-20] MEDS: PERCOCET 5MG/325MG TAB PO PRN ×3 (06:28→20:26)
[2017-03-20] MEDS: HEPARIN SOD (PORCINE) 5000 UNITS/ML VIAL SC SCH ×3 (06:28→20:27)
--- NOTE | 2017-03-20 07:27 | REP ---
PORTABLE CHEST X-RAY: Single view. HISTORY: Evaluate for fluid. FINDINGS: The lungs are symmetrically aerated and clear. Pleural angles are sharp. Heart size is normal. Pulmonary vasculature is not increased. IMPRESSION: No active disease. Signed by Osmel Gillespie MD 03/20/2017 09:19 A
[2017-03-20] MEDS: PANTOPRAZOLE 40MG INJ (PROTONIX) (C9113) IV SCH (09:39)
[2017-03-20] MEDS: SILVER SULFADIAZINE 1% CR 50 GM JAR TOP SCH ×2 (09:40→20:27)
[2017-03-20] MEDS: diphenhydrAMINE CREAM 30GM TOP PRN (09:40)
[2017-03-20 10:00] VITALS: BP 143/77
--- NOTE | 2017-03-20 10:32 | IPNPDOC ---
Text Note Date of Service The patient was seen on 03/20/17. NOTE Subjective: Patient is a 36 year old male with no reported PMHx who presented to the ER with complaints of left lower extremity swelling, pain and redness. Admitted for left leg cellulitis. Patient was seen and examined at the bedside. Yesterday he had an episode of chest pain, that was likely 2/2 heartburn. He notes that has resolved. He notes his leg is felling better, continuing to have drainage. No complaints of headache this morning. Objective: Vitals (See below) General: Lying in bed, no acute distress, comfortable, AAOx3 HEENT: NC, AT CVS: RRR, +S1S2 Lungs: Fair air entry b/l, -w/r/r Abdomen: Soft, ND, NT, Obese Extremities: 1+ pitting edema bilaterally, - Calf tenderness Skin: Left leg in dressing, left medial thigh with redness / warmth / tenderness improving; Assessment and plan: Cellulitis of Left leg - failed outpatient therapy - Presented with pain, swelling and redness of left leg; denies any trauma / bug bites - Leukocytosis improving; and CRP shows mild increase - Blood culture 03/14: Gram Positive Rods (1 of 2); Repeat cultures 03/15: Negative at 5 days - Wound Culture 03/14: MSSA - Duplex US 03/14: Negative for DVT - CT pelvis and lower extremities 03/15: No evidence of fluid collection or osteomyelitis - c/w Nafcillin (Day # 7 of antibiotics); s/p Vancomycin and Zosyn (Received 3 day course); s/p Ceftaroline (Received 1 day course) - Surgery consulted (Dr. Ellis); appreciate their input; c/w FREDY dressing and elevation s/p Chest pain - likely 2/2 heartburn - EKG 03/19: without any ischemic changes - Troponin x 2 sets negative - s/p GI cocktail with improvement in symptoms - c/w Protonix s/p Mild scrotal swelling - possibly 2/2 hydrocele - No evidence of erythema / warmth / tenderness of scrotal wall - US scrotum 03/18: Right scrotal wall thickening, small right sided hydrocele Headache - likely 2/[address] - [address] scan head 03/15: Negative - c/w Fioricet PRN at adjusted dose s/p Acute kidney injury - likely 2/2 intra-renal etiology, possibly pre-renal etiology - Cr on admission was 3.44; has trended down to normal - FENa of 0.4%; Renal US 03/14: no evidence of hydronephrosis - s/p IV fluid hydration Bilateral LE edema - possibly 2/2 dependent edema - Does not complain of any shortness of breath - Lungs auscultation is clear - ECHO 03/17: Normal systolic and diastolic function s/p Hypokalemia s/p Hyponatremia GI prophylaxis - PPI started 03/19 DVT prophylaxis - c/w Heparin VS,Fishbone, I+O VS, Fishbone, I+O Laboratory Tests 03/20/17 05:35 Red Blood Count 3.30 L, Mean Corpuscular Volume 91.8, Mean Corpuscular Hemoglobin 28.5, Mean Corpuscular Hemoglobin Concent 31.0 L, Red Cell Distribution Width 14.0, Neutrophils (%) (Auto) 77.0 H, Lymphocytes (%) (Auto) 11.6 L, Monocytes (%) (Auto) 9.0 H, Eosinophils (%) (Auto) 0.6, Basophils (%) ( Auto) 0.2, Neutrophils # (Auto) 7.2, Lymphocytes # (Auto) 1.1 L, Monocytes # ( Auto) 0.8, Eosinophils # (Auto) 0.1, Basophils # (Auto) 0.0, Calcium Level 8.3 L , Aspartate Amino Transf (AST/SGOT) 21, Alanine Aminotransferase (ALT/SGPT) 39, Alkaline Phosphatase 80, Total Bilirubin 0.6, Total Protein 6.1 L, Albumin 1.7 L Vital Signs Date Time Temp Pulse Resp B/P (MAP) Pulse Ox O2 Delivery O2 Flow Rate FiO2 03/20/17 06:58 18 Room Air 03/20/17 06:00 99.1 92 138/72 (94) 99 I&O- Last 24 Hours up to 6 AM 03/21/17 06:00 Intake Total 200 ml Balance 200 ml DANIEL DENNY MD Mar 20, 2017 10:32
[2017-03-20 14:00] VITALS: BP 131/63
[2017-03-20 18:00] VITALS: BP 129/61
[2017-03-20 22:00] VITALS: BP_DIAS 148
[2017-03-21 02:00] VITALS: BP 137/72
[2017-03-21] MEDS: NAFCILLIN SOD 2 GM in D5W MINI-BAG PLUS 100 ML IV SCH ×6 (02:11→23:08)
[2017-03-21] MEDS: PERCOCET 5MG/325MG TAB PO PRN (05:56)
[2017-03-21] MEDS: HEPARIN SOD (PORCINE) 5000 UNITS/ML VIAL SC SCH ×3 (05:56→20:29)
[2017-03-21 06:00] VITALS: BP_SYST 116; BP_SYST 133; BP_DIAS 61; BP_DIAS 67
[2017-03-21 06:16] LABS: BASO % 0.2 % (0.0-1.0); EOS # 0.1 10^3/uL (0.0-0.50); EOS % 0.5 % (0.0-3.0); IMMATURE GRANULOCYTE % 1.4 % (0-0); LYMPH # 1.2 10^3/uL (1.5-4.5); LYMPH % 12.2 % (24.0-44.0); MEAN CORPUSCULAR HEMOGLOBIN 28.4 pg (27.0-33.0); MEAN CORPUSCULAR HGB CONC 30.9 g/dl (32.0-36.5); MEAN CORPUSCULAR VOLUME 91.6 fl (80.0-96.0); MONO # 0.7 10^3/uL (0.0-0.8); MONO % 7.7 % (0.0-5.0); NEUTROPHILS # 7.4 10^3/uL (1.8-7.7); PLATELET COUNT, AUTOMATED 344 10^3/uL (150-450); RED CELL DISTRIBUTION WIDTH 13.8 % (11.5-14.5); WHITE BLOOD COUNT 9.5 10^3/uL (4.0-10.0)
[2017-03-21 06:42] LABS: ALBUMIN 1.8 GM/DL (3.2-5.2); ALBUMIN/GLOBULIN RATIO 0.46 (1.00-1.93); ALKALINE PHOSPHATASE 90 U/L (45-117); ALT/SGPT 46 U/L (12-78); ANION GAP 9 MEQ/L (8-16); AST/SGOT 30 U/L (7-37); BILIRUBIN,TOTAL 0.6 MG/DL (0.2-1.0); BLOOD UREA NITROGEN 12 MG/DL (7-18); CALCIUM LEVEL 7.9 MG/DL (8.5-10.1); CARBON DIOXIDE LEVEL 28 MEQ/L (21-32); CHLORIDE LEVEL 102 MEQ/L (98-107); CREATININE FOR GFR 0.85 MG/DL (0.70-1.30); GLOMERULAR FILTRATION RATE > 60.0 (>60); GLUCOSE, FASTING 98 MG/DL (70-105); POTASSIUM SERUM 4.5 MEQ/L (3.5-5.1); SODIUM LEVEL 139 MEQ/L (136-145); TOTAL PROTEIN 5.7 GM/DL (6.4-8.2)
[2017-03-21] MEDS: PANTOPRAZOLE 40MG INJ (PROTONIX) (C9113) IV SCH (09:48)
[2017-03-21] MEDS: SILVER SULFADIAZINE 1% CR 50 GM JAR TOP SCH ×2 (09:49→21:00)
[2017-03-21 10:00] VITALS: BP 132/70
--- NOTE | 2017-03-21 14:38 | IPNPDOC ---
Text Note Date of Service The patient was seen on 03/21/17. NOTE Subjective: Patient states that's the swelling and erythema in the left lower extremity has significantly improved. Objective: Vitals: (see below) General: No acute distress, laying comfortably in bed. HEENT: Moist mucous membranes. Neck: No JVD or lymphadenopathy Cardiac: RRR, No murmurs Pulm: Clear to auscultation b/l. No wheezing, rhonchi Abd: NT/ND + BS Ext: 1+ pitting edema bilateral lower extremities. Left greater than the right. Dark skin areas of the left anterior alvares as well as calf with some tenderness to palpation however patient states that the tenderness is much improved. There is dry skin in the region as well. Area of erythema is improving. Distal pulse intact. No cyanosis. Labs (see below) Images: Ultrasound bilateral lower extremities 03/14/17 Impression: No evidence of deep venous thrombosis of the left lower extremity femoral popliteal venous system. There is left inguinal adenopathy with several enlarged lymph nodes present, the largest measuring 5.9 x 1.7 x 3.2 cm. Renal ultrasound 03/14/17 IMPRESSION: No evidence of hydronephrosis. CT left femur 03/15/17 Impression: Circumferential soft tissue edema in the subcutaneous fat of the left thigh. Focal edema in the subcutaneous fat surrounding the left femoral nodes. No focal abscess. No CT evidence of osteomyelitis. CT left foot 03/15/17 Impression: No soft tissue fluid collections suggest abscess. No evidence of osteomyelitis. Osteochondrosis dessicated of the dome of the talus laterally. Small calcification along the anterior and tibiotalar joint line, ligamentous calcification versus intra-articular loose body. Circumferential edema in the subcutaneous fat, likely dependent edema. CT tibia/fibula on 03/15/17 Impression: No soft tissue abscess. No CT evidence of osteomyelitis. There is circumferential soft tissue edema compatible with dependent edema.There is a 3 cm skin lesion at the mid calf medially. Assessment/Plan 1. Cellulitis of the left lower extremity failed outpatient therapy. CT LE (see above) with no abscess. CRP/WBC improving. Wound culture with MSSA on nafcillin. Status post vancomycin and Zosyn. Blood culture 1 positive for strep vestibularis. Wound care ordered. Surg consulted for lesions on left lower ext. 3. Scrotal wall thickening/hydrocele- edema improved - will need outpt f/u. 4. FADY - resolved. likely pre-renal in setting of ibuprofen use. 5. S/p hypokalemia/hyponatremia - resolved. 6. LE edema - started on lasix DVT prophy: Heparin SQ VS,Fishbone, I+O VS, Fishbone, I+O Laboratory Tests 03/21/17 05:36 Red Blood Count 3.35 L, Mean Corpuscular Volume 91.6, Mean Corpuscular Hemoglobin 28.4, Mean Corpuscular Hemoglobin Concent 30.9 L, Red Cell Distribution Width 13.8, Neutrophils (%) (Auto) 78.0 H, Lymphocytes (%) (Auto) 12.2 L, Monocytes (%) (Auto) 7.7 H, Eosinophils (%) (Auto) 0.5, Basophils (%) ( Auto) 0.2, Neutrophils # (Auto) 7.4, Lymphocytes # (Auto) 1.2 L, Monocytes # ( Auto) 0.7, Eosinophils # (Auto) 0.1, Basophils # (Auto) 0.0, Calcium Level 7.9 L , Aspartate Amino Transf (AST/SGOT) 30, Alanine Aminotransferase (ALT/SGPT) 46, Alkaline Phosphatase 90, Total Bilirubin 0.6, Total Protein 5.7 L, Albumin 1.8 L Vital Signs Date Time Temp Pulse Resp B/P (MAP) Pulse Ox O2 Delivery O2 Flow Rate FiO2 03/21/17 11:03 Room Air 03/21/17 10:00 98.8 82 20 132/70 (90) 97 03/21/17 06:00 2.0 I&O- Last 24 Hours up to 6 AM 03/22/17 06:00 Intake Total 360 ml Output Total 1050 ml Balance -690 ml JENNY PENA MD Mar 21, 2017 14:38
[2017-03-21 18:00] VITALS: BP 147/67
--- NOTE | 2017-03-21 18:25 | CR.PDOC ---
[facility] Consultation Consultation DATE OF CONSULTATION: Mar 14, 2017 at 07:15 PRIMARY CARE PHYSICIAN: None Admits to not having had outpatient care PCP last 6 -8 years. REFERRING PROVIDER: Dr. Garcia ATTENDING PHYSICIAN: Dr. Garcia REASON FOR CONSULTATION/CHIEF COMPLAINT: Left Lower extremity cellulitis HISTORY OF PRESENT ILLNESS: : This is a 36-year-old male who denies any significant past medical history who was admitted for lLeft Lower extremity cellulitis that failed outpatient therapy. We were consulted by Dr. Garcia because dark lesion on the left lower extremity. He states the lesion started on 03/09 swelling in his left leg which started from his groin. Then on Saturday 03/10 he noticed pain and tenderness of the lower extremity. Describes the pain as sharp shooting that starts at the groin and radiates to the toes when it gets "really bad". He does note the symptoms progressively got worse despite using ibuprofen and Tylenol at home. On Monday the patient came to the emergency room where he had a venous Duplex at the time that was negative for deep venous thrombosis (DVT). He has a leukocytosis of 12.8 and was discharged with a prescription for clindamycin and advised to take ibuprofen for pain as needed. He reported about taking six ibuprofen on Monday and he also received 800 mg of ibuprofen in the emergency room on Monday. On Monday, the patient states he took six ibuprofen in the morning and a further six ibuprofen in the evening with a total dose of 2400 mg. He notes his pain did not improve with medication and he was having fevers at home. Report temp were 103-104. He came to the emergency room again on 03/14 where he was admitted with acute kidney injury and left lower extremity cellulites that failed outpatient therapy. Patient since admission has received IV ceftaroline, Vancomycin and Zosyn before his wound cultures came back with sensitives. The patient has been on Nafcillin since 03/18 and has noticed an improvement in his lower extremity cellulites and groin lesion. ALLERGIES: Please see below. HOME MEDICATIONS: Please see below. PAST MEDICAL HISTORY: 1. Morbid obesity. PAST SURGICAL HISTORY: 1. 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 2. Spermatacord torsion (Age 11) 3. Vasectomy in 2011. 4. Hand surgery in 2007. FAMILY HISTORY: Mother with history of chronic fatigue and gynecologic malignancy Father with no reported medical problems Siblings: 1 brother and 2 sisters: all alive and healthy SOCIAL HISTORY: Employment: Works at a dairy farm Tobacco use: Denies ETOH: Admits to occasional social use. Illicit drug use: Denies IV drug use: Denies Other relevant social factors: own 1 dog REVIEW OF SYSTEMS: CONSTITUTIONAL: Fevers CARDIOVASCULAR: Denies chest pain or palpitation RESPIRATORY: Denies shortness of breath or trouble breathing GENITOURINARY: denies dysuria, increased urinary frequency or discharge. SKIN: admits to lower extremity pain, swelling, tenderness and erythema. NEUROLOGICAL: admits to occasional lightheadedness and headaches. HEMATOLOGIC/LYMPHATIC: denies petechiae or lymphadenopathy PHYSICAL EXAMINATION: VITAL SIGNS: Please see below. GENERAL APPEARANCE: Morbidly obese male resting comfortable on hospital bed in no acute distress. RESPIRATORY: Diminished aeration bilateral because of large habitus. CARDIOVASCULAR: distant heart sounds because of large habitus. Regular rate and rhythm. no murmurs gallops or rubs. ABDOMEN: soft, non distended abdomen. no tenderness on palpation. left lower abdomen bruising from heparin injections. EXTREMITIES: Left leg: several irregular dark lesion surrounded by erythema around alvares and calf. improvement in tenderness on palpitation of the leg per patient. No weeping lesion around the alvares and calf. Lesion in left groin is tile-like lesion with irregular weeping border. +1 edema noted on the right lower leg. 2+ pedal pulses and no cyanosis noted. NEUROLOGICAL: dorsiflexion and planter intact bilateral. ROM on the ankle bilateral is appreciated and patient states improvement since admission. . LABORATORY DATA: Please see below. ASSESSMENT/PLAN: 1. Cellulitis of the left lower extremity and left groin. Based on physical exam , and history of improvement in symptoms we currently will not change medical management. Recommend to continue his current antibiotics, pain control and Silvadene topical. We will follow up in the am, and if he is continuing to show improvement then we will continue current treatment. However, if he starts to form fluid collections we can drain them, or if the rash spreads then we will consider punch biopsy. Will re-evaluate in the am. Vital Signs/I&O Vital Signs Date Time Temp Pulse Resp B/P (MAP) Pulse Ox O2 Delivery O2 Flow Rate FiO2 03/21/17 11:03 Room Air 03/21/17 10:00 98.8 82 20 132/70 (90) 97 03/21/17 06:00 2.0 I&O- Last 24 Hours up to 6 AM 03/22/17 06:00 Intake Total 360 ml Output Total 1550 ml Balance -1190 ml Laboratory Data Labs 24H Laboratory Tests 2 03/21/17 05:36: Immature Granulocyte % (Auto) 1.4H, White Blood Count 9.5, Red Blood Count 3.35L , Hemoglobin 9.5L, Hematocrit 30.7L, Mean Corpuscular Volume 91.6, Mean Corpuscular Hemoglobin 28.4, Mean Corpuscular Hemoglobin Concent 30.9L, Red Cell Distribution Width 13.8, Platelet Count 344, Neutrophils (%) (Auto) 78.0H, Lymphocytes (%) (Auto) 12.2L, Monocytes (%) (Auto) 7.7H, Eosinophils (%) (Auto) 0.5, Basophils (%) (Auto) 0.2, Neutrophils # (Auto) 7.4, Lymphocytes # (Auto) 1.2L, Monocytes # (Auto) 0.7, Eosinophils # (Auto) 0.1, Basophils # (Auto) 0.0, Immature Granulocyte # (Auto) 0.1H, Nucleated Red Blood Cells % (auto) 0.0, Anion Gap 9, Glomerular Filtration Rate > 60.0, Blood Urea Nitrogen 12, Creatinine 0.85, Sodium Level 139, Potassium Level 4.5, Chloride Level 102, Carbon Dioxide Level 28, Calcium Level 7.9L, Aspartate Amino Transf (AST/SGOT) 30, Alanine Aminotransferase (ALT/SGPT) 46, Alkaline Phosphatase 90, Total Bilirubin 0.6, Total Protein 5.7L, Albumin 1.8L, Magnesium Level 2.0, C- Reactive Protein, Quantitative 15.70H, Albumin/Globulin Ratio 0.46L CBC/BMP Laboratory Tests 03/21/17 05:36 Red Blood Count 3.35 L, Mean Corpuscular Volume 91.6, Mean Corpuscular Hemoglobin 28.4, Mean Corpuscular Hemoglobin Concent 30.9 L, Red Cell Distribution Width 13.8, Neutrophils (%) (Auto) 78.0 H, Lymphocytes (%) (Auto) 12.2 L, Monocytes (%) (Auto) 7.7 H, Eosinophils (%) (Auto) 0.5, Basophils (%) ( Auto) 0.2, Neutrophils # (Auto) 7.4, Lymphocytes # (Auto) 1.2 L, Monocytes # ( Auto) 0.7, Eosinophils # (Auto) 0.1, Basophils # (Auto) 0.0, Calcium Level 7.9 L , Aspartate Amino Transf (AST/SGOT) 30, Alanine Aminotransferase (ALT/SGPT) 46, Alkaline Phosphatase 90, Total Bilirubin 0.6, Total Protein 5.7 L, Albumin 1.8 L Microbiology Microbiology 03/15/17 Blood Culture - Final, Complete NO GROWTH AFTER 5 DAYS 03/15/17 Blood Culture - Final, Complete NO GROWTH AFTER 5 DAYS 03/14/17 Blood Culture - Final, Complete NO GROWTH AFTER 5 DAYS 03/14/17 Blood Culture - Final, Complete Corynebacterium Sp. Not Jk 03/14/17 Gram Stain - Final, Complete 03/14/17 Wound Culture - Final, Complete Staphylococcus Aureus Allergies Coded Allergies: No Known Drug Allergy (Verified Allergy, Unknown, 03/12/17) Home Medications Scheduled Doxycycline Hyclate (Doxycycline) 100 Mg Cap, 100 MG PO Q12H, #8 Scheduled PRN Acetaminophen (Acetaminophen) 500 Mg Tab, 1,000 MG PO Q6H PRN for PAIN, ( Reported) GME ATTESTATION GME ATTESTATION My preceptor for this patient encounter was physically present in the building during the encounter and was fully available. As needed, all aspects of the patient interview, examination, medical decision making process, and medical care plan development were reviewed and approved by the preceptor. Preceptor is aware and concurs with the plan as stated in the body of this note and will attest to such by his/her cosignature. ORI GARDNER DO Mar 21, 2017 18:25 ELVIRA AGARWAL DO Mar 22, 2017 13:09
[2017-03-21] MEDS ORDERED: ACETAMINOPHEN TAB 650MG DOSE (2X325MG) PO PRN (19:00)
[2017-03-21 22:00] VITALS: BP 138/81
[2017-03-22 02:00] VITALS: BP 141/80
[2017-03-22] MEDS: NAFCILLIN SOD 2 GM in D5W MINI-BAG PLUS 100 ML IV SCH ×5 (03:52→15:03)
[2017-03-22 06:00] VITALS: BP 144/74
[2017-03-22] MEDS: HEPARIN SOD (PORCINE) 5000 UNITS/ML VIAL SC SCH ×2 (06:00→14:00)
[2017-03-22 08:19] LABS: BASO % 0.1 % (0.0-1.0); EOS # 0.1 10^3/uL (0.0-0.50); EOS % 1.6 % (0.0-3.0); IMMATURE GRANULOCYTE % 0.9 % (0-0); LYMPH # 0.9 10^3/uL (1.5-4.5); LYMPH % 13.4 % (24.0-44.0); MEAN CORPUSCULAR HGB CONC 31.2 g/dl (32.0-36.5); MEAN CORPUSCULAR VOLUME 92.9 fl (80.0-96.0); MONO # 0.4 10^3/uL (0.0-0.8); MONO % 6.2 % (0.0-5.0); NEUTROPHILS # 5.4 10^3/uL (1.8-7.7); NEUTROPHILS % 77.8 % (36.0-66.0); PLATELET COUNT, AUTOMATED 344 10^3/uL (150-450); RED CELL DISTRIBUTION WIDTH 13.6 % (11.5-14.5); WHITE BLOOD COUNT 6.9 10^3/uL (4.0-10.0)
[2017-03-22 08:37] LABS: ALBUMIN 1.8 GM/DL (3.2-5.2); ALBUMIN/GLOBULIN RATIO 0.44 (1.00-1.93); ALKALINE PHOSPHATASE 97 U/L (45-117); ALT/SGPT 59 U/L (12-78); ANION GAP 7 MEQ/L (8-16); AST/SGOT 37 U/L (7-37); BILIRUBIN,TOTAL 0.8 MG/DL (0.2-1.0); BLOOD UREA NITROGEN 14 MG/DL (7-18); CALCIUM LEVEL 8.3 MG/DL (8.5-10.1); CARBON DIOXIDE LEVEL 30 MEQ/L (21-32); CHLORIDE LEVEL 102 MEQ/L (98-107); CREATININE FOR GFR 0.84 MG/DL (0.70-1.30); GLOMERULAR FILTRATION RATE > 60.0 (>60); GLUCOSE, FASTING 109 MG/DL (70-105); POTASSIUM SERUM 4.5 MEQ/L (3.5-5.1); SODIUM LEVEL 139 MEQ/L (136-145); TOTAL PROTEIN 5.9 GM/DL (6.4-8.2)
[2017-03-22] MEDS: SILVER SULFADIAZINE 1% CR 50 GM JAR TOP SCH (09:49)
[2017-03-22] MEDS: PANTOPRAZOLE 40MG INJ (PROTONIX) (C9113) IV SCH (09:49)
[2017-03-22 10:00] VITALS: BP 144/75
[2017-03-22] MEDS ORDERED: DOXY-278 PO (11:02)
--- NOTE | 2017-03-22 12:30 | IPNPDOC ---
Date Seen The patient was seen on 03/22/17. Progress Note SUBJECTIVE: This is a 36-year-old male who denies any significant past medical history who was admitted for left Lower extremity cellulitis that failed outpatient therapy. Patient was seen and examined this morning at bedside with his . The patient does not have any complaints. States the wound is getting better and significant improvement in the paint that he can ambulate around the room. His and him would like to know when they can go home. He denies any fever, chills, nausea, vomiting or diarrhea. OBJECTIVE: VITAL SIGNS: Please see below. GENERAL APPEARANCE: Morbidly obese male resting comfortable on hospital bed in no acute distress. ABDOMEN: soft, non distended abdomen. no tenderness on palpation. left lower abdomen bruising from heparin injections. EXTREMITIES: Left leg: several irregular dark lesion surrounded by erythema around alvares and calf. significant improvement in tenderness on palpitation of the leg while changing the bandage. No weeping lesion around the alvares and calf. Lesion in left groin is tile-like lesion with irregular weeping border significantly improving. +1 edema noted on the right lower leg. 2+ pedal pulses and no cyanosis noted. NEUROLOGICAL: dorsiflexion and planter flexion intact bilateral. Ankle ROM bilateral wNL LABORATORY DATA: Please see below. MICROBIOLOGY: Please see below. IMAGING no new imaging ASSESSMENT AND PLAN:This is a 36-year-old male who denies any significant past medical history who was admitted for left Lower extremity cellulitis that failed outpatient therapy. LABORATORY DATA: Please see below. ASSESSMENT/PLAN: 1. Cellulitis of the left lower extremity and left groin. Clinically improving. Continue with medical management such as current antibiotics, pain control and Silvadene topical for wound plus wound care per primary medical team. No surgical intervention is needed. . Thank you for this consult. VS, I&O, 24H, Fishbone Vital Signs/I&O Vital Signs Date Time Temp Pulse Resp B/P (MAP) Pulse Ox O2 Delivery O2 Flow Rate FiO2 03/22/17 10:00 97.5 81 18 144/75 (98) 98 Room Air 03/21/17 06:00 2.0 I&O- Last 24 Hours up to 6 AM 03/23/17 06:00 Intake Total 690 ml Output Total 800 ml Balance -110 ml Laboratory Data 24H LABS Laboratory Tests 2 03/22/17 07:57: Immature Granulocyte % (Auto) 0.9H, White Blood Count 6.9, Red Blood Count 3.38L , Hemoglobin 9.8L, Hematocrit 31.4L, Mean Corpuscular Volume 92.9, Mean Corpuscular Hemoglobin 29.0, Mean Corpuscular Hemoglobin Concent 31.2L, Red Cell Distribution Width 13.6, Platelet Count 344, Neutrophils (%) (Auto) 77.8H, Lymphocytes (%) (Auto) 13.4L, Monocytes (%) (Auto) 6.2H, Eosinophils (%) (Auto) 1.6, Basophils (%) (Auto) 0.1, Neutrophils # (Auto) 5.4, Lymphocytes # (Auto) 0.9L, Monocytes # (Auto) 0.4, Eosinophils # (Auto) 0.1, Basophils # (Auto) 0.0, Immature Granulocyte # (Auto) 0.1H, Nucleated Red Blood Cells % (auto) 0.0, Anion Gap 7L, Glomerular Filtration Rate > 60.0, Blood Urea Nitrogen 14, Creatinine 0.84, Sodium Level 139, Potassium Level 4.5, Chloride Level 102, Carbon Dioxide Level 30, Calcium Level 8.3L, Aspartate Amino Transf (AST/SGOT) 37, Alanine Aminotransferase (ALT/SGPT) 59, Alkaline Phosphatase 97, Total Bilirubin 0.8, Total Protein 5.9L, Albumin 1.8L, C-Reactive Protein, Quantitative 13.00H, Albumin/Globulin Ratio 0.44L CBC/BMP Laboratory Tests 03/22/17 07:57 Red Blood Count 3.38 L, Mean Corpuscular Volume 92.9, Mean Corpuscular Hemoglobin 29.0, Mean Corpuscular Hemoglobin Concent 31.2 L, Red Cell Distribution Width 13.6, Neutrophils (%) (Auto) 77.8 H, Lymphocytes (%) (Auto) 13.4 L, Monocytes (%) (Auto) 6.2 H, Eosinophils (%) (Auto) 1.6, Basophils (%) ( Auto) 0.1, Neutrophils # (Auto) 5.4, Lymphocytes # (Auto) 0.9 L, Monocytes # ( Auto) 0.4, Eosinophils # (Auto) 0.1, Basophils # (Auto) 0.0, Calcium Level 8.3 L , Aspartate Amino Transf (AST/SGOT) 37, Alanine Aminotransferase (ALT/SGPT) 59, Alkaline Phosphatase 97, Total Bilirubin 0.8, Total Protein 5.9 L, Albumin 1.8 L Microbiology Microbiology 03/15/17 Blood Culture - Final, Complete NO GROWTH AFTER 5 DAYS 03/15/17 Blood Culture - Final, Complete NO GROWTH AFTER 5 DAYS 03/14/17 Blood Culture - Final, Complete NO GROWTH AFTER 5 DAYS 03/14/17 Blood Culture - Final, Complete Corynebacterium Sp. Not Jk 03/14/17 Gram Stain - Final, Complete 03/14/17 Wound Culture - Final, Complete Staphylococcus Aureus GME ATTESTATION GME ATTESTATION My preceptor for this patient encounter was physically present in the building during the encounter and was fully available. As needed, all aspects of the patient interview, examination, medical decision making process, and medical care plan development were reviewed and approved by the preceptor. Preceptor is aware and concurs with the plan as stated in the body of this note and will attest to such by his/her cosignature. ORI GARDNER DO Mar 22, 2017 12:30 ELVIRA AGARWAL DO Mar 22, 2017 13:10
[2017-03-22 14:00] VITALS: BP 149/76
[2017-03-22] MEDS ORDERED: SILV50CR TOP (14:11)
--- NOTE | 2017-03-22 14:18 | DS.PDOC ---
Discharge Summary General Date of Admission Mar 14, 2017 at 10:09 Date of Discharge 03/22/17 Attending Physician: JENNY PENA MD Specialist/Consultants Involve: ELVIRA AGARWAL DO Discharge Summary PROCEDURES PERFORMED DURING STAY: None. ADMITTING/DISCHARGE DIAGNOSES: 1. Cellulitis of the left lower extremity 2. Acute kidney injury resolved 3. Status post hypokalemia/hyponatremia 4. Lower extremity edema 5. Scrotal wall thickening/hydrocele will need outpatient follow-up with PCP for possible urology referral. COMPLICATIONS/CHIEF COMPLAINT: Swelling and redness of the left lower extremity HISTORY OF PRESENT ILLNESS/HOSPITAL COURSE: This is a 28-year-old male with no significant past medical history who presents complaining of redness and swelling of the left lower extremity. Patient stated that redness and erythema was noticed on 03/09 with progressive redness spreading from his left tibial region up to his groin for which she decided to come to the ED. Patient was started on vancomycin and Zosyn and had received citrulline over the course of hospitalization. Given the sensitivities of his MSSA wound culture , the patient was again switched to nafcillin. The patient's leukocytosis as well as inflammatory markers have improved. He is clinically improving, in regards to his erythema as well as edema. He is more and laboratory at this point. He is afebrile. He has been seen by wound care as well as surgery with recommendations for continuation of wound care at home. The and patient are being taught how to perform this. The patient does not have a primary care physician and will set up to follow-up with one next week. Patient is to return to the ED if symptoms worsen. DISCHARGE MEDICATIONS: Please see below. ALLERGIES: Please see below. PHYSICAL EXAMINATION ON DISCHARGE: Vitals: (see below) General: No acute distress, laying comfortably in bed. HEENT: Moist mucous membranes. Neck: No JVD or lymphadenopathy Cardiac: RRR, No murmurs Pulm: Clear to auscultation b/l. No wheezing, rhonchi Abd: NT/ND + BS Ext: 1+ pitting edema bilateral lower extremities, improved from yesterday. Left greater than the right. Dark skin areas of the left anterior alvares as well as calf with some tenderness to palpation however patient states that the tenderness is much improved. There is dry skin in the region as well. Area of erythema is improving. Distal pulse intact. No cyanosis. LABORATORY DATA: Please see below. IMAGING: Ultrasound bilateral lower extremities 03/14/17 Impression: No evidence of deep venous thrombosis of the left lower extremity femoral popliteal venous system. There is left inguinal adenopathy with several enlarged lymph nodes present, the largest measuring 5.9 x 1.7 x 3.2 cm. Renal ultrasound 03/14/17 IMPRESSION: No evidence of hydronephrosis. CT left femur 03/15/17 Impression: Circumferential soft tissue edema in the subcutaneous fat of the left thigh. Focal edema in the subcutaneous fat surrounding the left femoral nodes. No focal abscess. No CT evidence of osteomyelitis. CT left foot 03/15/17 Impression: No soft tissue fluid collections suggest abscess. No evidence of osteomyelitis. Osteochondrosis dessicated of the dome of the talus laterally. Small calcification along the anterior and tibiotalar joint line, ligamentous calcification versus intra-articular loose body. Circumferential edema in the subcutaneous fat, likely dependent edema. CT tibia/fibula on 03/15/17 Impression: No soft tissue abscess. No CT evidence of osteomyelitis. There is circumferential soft tissue edema compatible with dependent edema.There is a 3 cm skin lesion at the mid calf medially. PROGNOSIS: Fair ACTIVITY: As tolerated. DIET: Low-sodium DISCHARGE PLAN/DISPOSITION: Home DISCHARGE INSTRUCTIONS: 1. Follow-up with PCP next week. Return to ED if symptoms worsen. DISCHARGE CONDITION: Stable. TIME SPENT ON DISCHARGE: Greater than 30 minutes. Vital Signs/I&Os Vital Signs Date Time Temp Pulse Resp B/P (MAP) Pulse Ox O2 Delivery O2 Flow Rate FiO2 03/22/17 10:00 97.5 81 18 144/75 (98) 98 Room Air 03/21/17 06:00 2.0 I&O- Last 24 Hours up to 6 AM 03/23/17 06:00 Intake Total 690 ml Output Total 1000 ml Balance -310 ml Laboratory Data Labs 24H Laboratory Tests 2 03/22/17 07:57: Immature Granulocyte % (Auto) 0.9H, White Blood Count 6.9, Red Blood Count 3.38L , Hemoglobin 9.8L, Hematocrit 31.4L, Mean Corpuscular Volume 92.9, Mean Corpuscular Hemoglobin 29.0, Mean Corpuscular Hemoglobin Concent 31.2L, Red Cell Distribution Width 13.6, Platelet Count 344, Neutrophils (%) (Auto) 77.8H, Lymphocytes (%) (Auto) 13.4L, Monocytes (%) (Auto) 6.2H, Eosinophils (%) (Auto) 1.6, Basophils (%) (Auto) 0.1, Neutrophils # (Auto) 5.4, Lymphocytes # (Auto) 0.9L, Monocytes # (Auto) 0.4, Eosinophils # (Auto) 0.1, Basophils # (Auto) 0.0, Immature Granulocyte # (Auto) 0.1H, Nucleated Red Blood Cells % (auto) 0.0, Anion Gap 7L, Glomerular Filtration Rate > 60.0, Blood Urea Nitrogen 14, Creatinine 0.84, Sodium Level 139, Potassium Level 4.5, Chloride Level 102, Carbon Dioxide Level 30, Calcium Level 8.3L, Aspartate Amino Transf (AST/SGOT) 37, Alanine Aminotransferase (ALT/SGPT) 59, Alkaline Phosphatase 97, Total Bilirubin 0.8, Total Protein 5.9L, Albumin 1.8L, C-Reactive Protein, Quantitative 13.00H, Albumin/Globulin Ratio 0.44L CBC/BMP Laboratory Tests 03/22/17 07:57 Red Blood Count 3.38 L, Mean Corpuscular Volume 92.9, Mean Corpuscular Hemoglobin 29.0, Mean Corpuscular Hemoglobin Concent 31.2 L, Red Cell Distribution Width 13.6, Neutrophils (%) (Auto) 77.8 H, Lymphocytes (%) (Auto) 13.4 L, Monocytes (%) (Auto) 6.2 H, Eosinophils (%) (Auto) 1.6, Basophils (%) ( Auto) 0.1, Neutrophils # (Auto) 5.4, Lymphocytes # (Auto) 0.9 L, Monocytes # ( Auto) 0.4, Eosinophils # (Auto) 0.1, Basophils # (Auto) 0.0, Calcium Level 8.3 L , Aspartate Amino Transf (AST/SGOT) 37, Alanine Aminotransferase (ALT/SGPT) 59, Alkaline Phosphatase 97, Total Bilirubin 0.8, Total Protein 5.9 L, Albumin 1.8 L Microbiology Microbiology 03/15/17 Blood Culture - Final, Complete NO GROWTH AFTER 5 DAYS 03/15/17 Blood Culture - Final, Complete NO GROWTH AFTER 5 DAYS 03/14/17 Blood Culture - Final, Complete NO GROWTH AFTER 5 DAYS 03/14/17 Blood Culture - Final, Complete Corynebacterium Sp. Not Jk 03/14/17 Gram Stain - Final, Complete 03/14/17 Wound Culture - Final, Complete Staphylococcus Aureus Discharge Medications Scheduled Doxycycline Hyclate (Doxycycline) 100 Mg Cap, 100 MG PO Q12H Silver Sulfadiazine (Ssd) 1 % Cre, 1 GM TOP BID Apply to left leg twice a day for 10 days. Scheduled PRN Acetaminophen (Acetaminophen) 500 Mg Tab, 1,000 MG PO Q6H PRN for PAIN, ( Reported) Allergies Coded Allergies: No Known Drug Allergy (Verified Allergy, Unknown, 03/12/17) JENNY PENA MD Mar 22, 2017 14:18
== END 2017-03-22 16:23 | disposition home or self-care (01) | DRG 383 ==
LOC: M ED 07:15 → M ED INP 10:09 → M PED 11:55 → UNDODISIN 03-15 12:12 → M MSPAV 03-15 14:37
PROVIDERS: ADMIT Internal Medicine; ATTEND Internal Medicine
DX: L03.116 Cellulitis of left lower limb (principal); N17.9 Acute kidney failure, unspecified; E66.01 Morbid (severe) obesity due to excess calories; E87.1 Hypo-osmolality and hyponatremia; R60.0 Localized edema; G43.909 Migraine, unspecified, not intractable, without status migrainosus; E87.6 Hypokalemia; B95.61 Methicillin susceptible Staphylococcus aureus infection as the cause of diseases classified elsewhere; N43.3 Hydrocele, unspecified; T39.395A Adverse effect of other nonsteroidal anti-inflammatory drugs [NSAID], initial encounter; Y99.8 Other external cause status; Z68.44 Body mass index [BMI] 60.0-69.9, adult

== ENCOUNTER 2017-04-16 18:02 | Emergency (ER) | payer SELFPAY ==
[~2017-04-16] VITALS: Ht 165.1 cm; Wt 161.8 kg
[~2017-04-16 18:02] MED LIST changes: +ACET50TAOT PO; +DOXY-278 PO; +SILV50CR TOP
[2017-04-16] MEDS ORDERED: OXYC15TA76 PO ×2 (18:16→22:53)
[2017-04-16 21:25] LABS: BASO % 0.4 % (0.0-1.0); EOS # 0.1 10^3/uL (0.0-0.50); EOS % 1.8 % (0.0-3.0); IMMATURE GRANULOCYTE % 0.2 % (0-0); LYMPH # 1.7 10^3/uL (1.5-4.5); LYMPH % 29.2 % (24.0-44.0); MEAN CORPUSCULAR HGB CONC 31.9 g/dl (32.0-36.5); MEAN CORPUSCULAR VOLUME 87.7 fl (80.0-96.0); MONO # 0.4 10^3/uL (0.0-0.8); MONO % 7.8 % (0.0-5.0); NEUTROPHILS # 3.4 10^3/uL (1.8-7.7); NEUTROPHILS % 60.6 % (36.0-66.0); PLATELET COUNT, AUTOMATED 249 10^3/uL (150-450); RED CELL DISTRIBUTION WIDTH 13.2 % (11.5-14.5); WHITE BLOOD COUNT 5.7 10^3/uL (4.0-10.0)
[2017-04-16 21:43] LABS: ALBUMIN 3.3 GM/DL (3.2-5.2); ANION GAP 7 MEQ/L (8-16); BLOOD UREA NITROGEN 12 MG/DL (7-18); CALCIUM LEVEL 8.9 MG/DL (8.5-10.1); CARBON DIOXIDE LEVEL 28 MEQ/L (21-32); CHLORIDE LEVEL 105 MEQ/L (98-107); CREATININE FOR GFR 0.85 MG/DL (0.70-1.30); GLOMERULAR FILTRATION RATE > 60.0 (>60); GLUCOSE, FASTING 92 MG/DL (70-105); PHOSPHORUS LEVEL 4.1 MG/DL (2.5-4.9); POTASSIUM SERUM 3.7 MEQ/L (3.5-5.1); SODIUM LEVEL 140 MEQ/L (136-145)
[2017-04-16] MEDS ORDERED: FUROSEMIDE 20 MG TAB PO ONE (22:30)
[2017-04-16] MEDS ORDERED: BACTRIM 160MG/800MG DS TAB PO ONE (22:30)
[2017-04-16] MEDS ORDERED: oxyCODONE 5MG TAB PO ONE ×2 (22:45→23:00)
[2017-04-16] MEDS ORDERED: BACT800T5 PO (22:50)
[2017-04-16] MEDS ORDERED: LASI20TA PO (22:51)
[2017-04-16 23:30] VITALS: BP 132/79
== END 2017-04-16 23:32 | disposition home or self-care (01) ==
LOC: M ED 18:02
DX: L03.90 Cellulitis, unspecified (principal); M79.605 Pain in left leg; R22.42 Localized swelling, mass and lump, left lower limb; R03.0 Elevated blood-pressure reading, without diagnosis of hypertension; R31.29 Other microscopic hematuria; D64.9 Anemia, unspecified

== ENCOUNTER → 2017-04-19 | Outpatient (REF) | payer SELFPAY ==
[~2017-04-19] MED LIST changes: +BACT800T5 PO; +LASI20TA PO; +OXYC15TA76 PO
[2017-04-19 16:01] LABS: ANION GAP 5 MEQ/L (8-16); BLOOD UREA NITROGEN 9 MG/DL (7-18); CALCIUM LEVEL 9.1 MG/DL (8.5-10.1); CARBON DIOXIDE LEVEL 34 MEQ/L (21-32); CHLORIDE LEVEL 101 MEQ/L (98-107); CREATININE FOR GFR 1.11 MG/DL (0.70-1.30); GLOMERULAR FILTRATION RATE > 60.0 (>60); GLUCOSE, FASTING 65 MG/DL (70-105); POTASSIUM SERUM 3.6 MEQ/L (3.5-5.1); SODIUM LEVEL 140 MEQ/L (136-145)
== END ==
LOC: M LABDRAWP 15:36 → M LAB REF 15:36
PROVIDERS: ATTEND Physician Assistant
DX: R60.9 Edema, unspecified (principal)

== ENCOUNTER → 2017-04-21 | Outpatient (CLI) | payer SELFPAY ==
--- NOTE | 2017-04-22 07:13 | REP ---
LEFT LOWER EXTREMITY DUPLEX VEINS: HISTORY: Edema. There are no filling defects in the deep venous system. The deep venous system is patent. IMPRESSION: There is no deep venous thrombosis. Signed by Humble Fry MD 04/22/2017 08:58 A
== END ==
LOC: M RAD 12:58
PROVIDERS: ATTEND Family Medicine
DX: R60.0 Localized edema (principal)

== ENCOUNTER → 2017-05-01 | Outpatient (REF) | payer OTHER | LOC: M SFHCLERA 18:05 | PROVIDERS: ATTEND Nurse Practitioner Family | DX: S81.802A Unspecified open wound, left lower leg, initial encounter (principal); W18.30XA Fall on same level, unspecified, initial encounter; Y92.009 Unspecified place in unspecified non-institutional (private) residence as the place of occurrence of the external cause ==

== ENCOUNTER 2017-05-22 14:38 | Emergency (ER) | payer SELFPAY, OTHER ==
[2017-05-22] MEDS: CEFTAROLINE FOSAMIL 600 MG in APPROPRIATE DILUENT 1 EA IV (16:00)
[2017-05-22 16:17] LABS: BASO % 0.4 % (0.0-1.0); EOS % 0.4 % (0.0-3.0); HEMATOCRIT 36.7 % (42.0-52.0); HEMOGLOBIN 12.1 g/dl (14.0-18.0); IMMATURE GRANULOCYTE % 0.4 % (0-0); LYMPH % 11.9 % (24.0-44.0); MEAN CORPUSCULAR HEMOGLOBIN 27.8 pg (27.0-33.0); MEAN CORPUSCULAR VOLUME 84.2 fl (80.0-96.0); MONO # 0.4 10^3/uL (0.0-0.8); MONO % 5.3 % (0.0-5.0); NEUTROPHILS # 6.5 10^3/uL (1.8-7.7); NEUTROPHILS % 81.6 % (36.0-66.0); PLATELET COUNT, AUTOMATED 218 10^3/uL (150-450); RED BLOOD COUNT 4.36 10^6/uL (4.30-6.10); RED CELL DISTRIBUTION WIDTH 13.3 % (11.5-14.5)
[2017-05-22] MEDS: NS 0.45% 1,000 ML IV (16:27)
[2017-05-22 16:36] LABS: ANION GAP 8 MEQ/L (8-16); BLOOD UREA NITROGEN 14 MG/DL (7-18); CALCIUM LEVEL 8.4 MG/DL (8.5-10.1); CARBON DIOXIDE LEVEL 27 MEQ/L (21-32); CHLORIDE LEVEL 104 MEQ/L (98-107); CREATININE FOR GFR 0.96 MG/DL (0.70-1.30); GLOMERULAR FILTRATION RATE > 60.0 (>60); GLUCOSE, FASTING 110 MG/DL (70-105); SODIUM LEVEL 139 MEQ/L (136-145)
[2017-05-22 16:40] LABS: LACTIC ACID SEPSIS PROTOCOL 0.7 MMOL/L (0.4-2.0)
[2017-05-22] MEDS: POTASSIUM CHLORIDE 10 MEQ SR TABLET PO (18:30)
== END 2017-05-22 18:44 | disposition home or self-care (01) ==
LOC: M ED 14:38
DX: L03.116 Cellulitis of left lower limb (principal); R59.1 Generalized enlarged lymph nodes; Z88.8 Allergy status to other drugs, medicaments and biological substances; Z79.899 Other long term (current) drug therapy; Z87.2 Personal history of diseases of the skin and subcutaneous tissue; Z87.448 Personal history of other diseases of urinary system
CPT/HCPCS: J0712

== ENCOUNTER 2017-05-25 15:07 | Emergency (ER) | payer SELFPAY ==
[2017-05-25] MEDS ORDERED: NS 1,000 ML IV (16:00)
[2017-05-25] MEDS: VANCOMYCIN HCL 750 MG, VIAL MATE ADAPTER 1 EACH in D5W 250 ML IV (16:13)
[2017-05-25 16:17] LABS: BASO % 0.3 % (0.0-1.0); EOS # 0.2 10^3/uL (0.0-0.50); EOS % 2.5 % (0.0-3.0); HEMATOCRIT 36.9 % (42.0-52.0); HEMOGLOBIN 12.1 g/dl (14.0-18.0); IMMATURE GRANULOCYTE % 0.3 % (0-0); LYMPH # 1.7 10^3/uL (1.5-4.5); MEAN CORPUSCULAR HEMOGLOBIN 27.6 pg (27.0-33.0); MEAN CORPUSCULAR HGB CONC 32.8 g/dl (32.0-36.5); MEAN CORPUSCULAR VOLUME 84.2 fl (80.0-96.0); MONO # 0.5 10^3/uL (0.0-0.8); MONO % 7.4 % (0.0-5.0); NEUTROPHILS # 4.8 10^3/uL (1.8-7.7); NEUTROPHILS % 66.5 % (36.0-66.0); PLATELET COUNT, AUTOMATED 267 10^3/uL (150-450); RED BLOOD COUNT 4.38 10^6/uL (4.30-6.10); RED CELL DISTRIBUTION WIDTH 13.2 % (11.5-14.5); WHITE BLOOD COUNT 7.3 10^3/uL (4.0-10.0)
[2017-05-25 16:38] LABS: ALBUMIN 3.6 GM/DL (3.2-5.2); ALBUMIN/GLOBULIN RATIO 0.82 (1.00-1.93); ALKALINE PHOSPHATASE 78 U/L (45-117); ALT/SGPT 57 U/L (12-78); ANION GAP 6 MEQ/L (8-16); AST/SGOT 30 U/L (7-37); BILIRUBIN,TOTAL 0.4 MG/DL (0.2-1.0); BLOOD UREA NITROGEN 17 MG/DL (7-18); CALCIUM LEVEL 9.2 MG/DL (8.5-10.1); CARBON DIOXIDE LEVEL 27 MEQ/L (21-32); CHLORIDE LEVEL 106 MEQ/L (98-107); GLOMERULAR FILTRATION RATE > 60.0 (>60); GLUCOSE, FASTING 108 MG/DL (70-105); POTASSIUM SERUM 3.6 MEQ/L (3.5-5.1); SODIUM LEVEL 139 MEQ/L (136-145)
== END 2017-05-25 17:21 | disposition home or self-care (01) ==
LOC: M ED 15:07
DX: L03.116 Cellulitis of left lower limb (principal); B95.62 Methicillin resistant Staphylococcus aureus infection as the cause of diseases classified elsewhere; I10 Essential (primary) hypertension; Z79.2 Long term (current) use of antibiotics; Z79.899 Other long term (current) drug therapy; Z88.8 Allergy status to other drugs, medicaments and biological substances; Z98.890 Other specified postprocedural states
CPT/HCPCS: J3370

== ENCOUNTER 2017-08-03 15:28 | Inpatient (IN) | payer OTHER, SELFPAY ==
[2017-08-03] MEDS ORDERED: NS 1,000 ML IV ×2 (16:00→16:50)
[2017-08-03] MEDS: ACETAMINOPHEN 325 MG TAB PO (16:05)
[2017-08-03 16:11] LABS: BASO % 0.2 % (0.0-1.0); HEMATOCRIT 42.2 % (42.0-52.0); HEMOGLOBIN 13.7 g/dl (14.0-18.0); IMMATURE GRANULOCYTE % 0.6 % (0-3.0); LYMPH # 0.5 10^3/uL (1.5-4.5); LYMPH % 3.3 % (24.0-44.0); MEAN CORPUSCULAR HEMOGLOBIN 27.6 pg (27.0-33.0); MEAN CORPUSCULAR HGB CONC 32.5 g/dl (32.0-36.5); MEAN CORPUSCULAR VOLUME 85.1 fl (80.0-96.0); MONO # 0.5 10^3/uL (0.0-0.8); NEUTROPHILS % 92.9 % (36.0-66.0); PLATELET COUNT, AUTOMATED 219 10^3/uL (150-450); RED BLOOD COUNT 4.96 10^6/uL (4.30-6.10); RED CELL DISTRIBUTION WIDTH 13.4 % (11.5-14.5); WHITE BLOOD COUNT 16.2 10^3/uL (4.0-10.0)
[2017-08-03 16:34] LABS: ALBUMIN 3.8 GM/DL (3.2-5.2); ALBUMIN/GLOBULIN RATIO 0.95 (1.00-1.93); ALKALINE PHOSPHATASE 93 U/L (45-117); ALT/SGPT 41 U/L (12-78); ANION GAP 8 MEQ/L (8-16); AST/SGOT 27 U/L (7-37); BILIRUBIN,TOTAL 0.9 MG/DL (0.2-1.0); BLOOD UREA NITROGEN 19 MG/DL (7-18); CARBON DIOXIDE LEVEL 29 MEQ/L (21-32); CHLORIDE LEVEL 100 MEQ/L (98-107); CREATININE FOR GFR 1.45 MG/DL (0.70-1.30); GLOMERULAR FILTRATION RATE 57.7 (>60); GLUCOSE, FASTING 96 MG/DL (70-100); POTASSIUM SERUM 4.1 MEQ/L (3.5-5.1); SODIUM LEVEL 137 MEQ/L (136-145); TOTAL PROTEIN 7.8 GM/DL (6.4-8.2)
[2017-08-03 16:35] LABS: LACTIC ACID SEPSIS PROTOCOL 1.7 MMOL/L (0.4-2.0)
[2017-08-03] MEDS: LR 1,000 ML IV ×3 (17:00→21:58)
[2017-08-03] MEDS: CEFTAROLINE FOSAMIL 600 MG in D5W MINI-BAG PLUS 50 ML IV (17:00)
[2017-08-03 17:18] LABS: C REACTIVE PROTEIN QUANTITATIV 6.03 MG/DL (0.00-0.30); CPK CREATINE PHOSPHOKINASE 128 U/L (39-308)
[2017-08-03 17:29] LABS: ERYTHROCYTE SEDIMENTATION RATE 23 mm/hr (0-15)
[2017-08-03] MEDS: KETOROLAC 30 MG/ML VIAL (J1885) IV (21:58)
[2017-08-03] MEDS: ACETAMINOPHEN TAB 650MG DOSE (2X325MG) PO (23:49)
[2017-08-04] MEDS: LR 1,000 ML IV ×3 (03:55→16:31)
[2017-08-04] MEDS: ACETAMINOPHEN TAB 650MG DOSE (2X325MG) PO ×4 (03:55→22:05)
[2017-08-04] MEDS: CEFTAROLINE FOSAMIL 600 MG in D5W MINI-BAG PLUS 50 ML IV ×2 (04:21→16:30)
[2017-08-04 06:01] LABS: HEMATOCRIT 35.8 % (42.0-52.0); MEAN CORPUSCULAR HEMOGLOBIN 27.2 pg (27.0-33.0); MEAN CORPUSCULAR HGB CONC 32.4 g/dl (32.0-36.5); MEAN CORPUSCULAR VOLUME 83.8 fl (80.0-96.0); PLATELET COUNT, AUTOMATED 192 10^3/uL (150-450); RED BLOOD COUNT 4.27 10^6/uL (4.30-6.10); RED CELL DISTRIBUTION WIDTH 14.3 % (11.5-14.5); WHITE BLOOD COUNT 13.6 10^3/uL (4.0-10.0)
[2017-08-04] MEDS: ONDANSETRON 4MG/2ML VIAL (J2405) IV (06:01)
[2017-08-04 06:08] LABS: HEMOGLOBIN 11.6 g/dl (14.0-18.0)
[2017-08-04 06:24] LABS: ANION GAP 8 MEQ/L (8-16); BLOOD UREA NITROGEN 22 MG/DL (7-18); CALCIUM LEVEL 7.9 MG/DL (8.5-10.1); CARBON DIOXIDE LEVEL 26 MEQ/L (21-32); CHLORIDE LEVEL 102 MEQ/L (98-107); GLOMERULAR FILTRATION RATE > 60.0 (>60); GLUCOSE, FASTING 107 MG/DL (70-100); POTASSIUM SERUM 3.7 MEQ/L (3.5-5.1); SODIUM LEVEL 136 MEQ/L (136-145)
[2017-08-04 06:27] LABS: ERYTHROCYTE SEDIMENTATION RATE 46 mm/hr (0-15)
[2017-08-04] MEDS: ENOXAPARIN 40 MG/0.4 ML SYRINGE (J1650) SC (08:05)
[2017-08-05] MEDS: LR 1,000 ML IV ×3 (01:15→19:43)
[2017-08-05] MEDS: ACETAMINOPHEN TAB 650MG DOSE (2X325MG) PO ×3 (02:32→21:22)
[2017-08-05] MEDS: CEFTAROLINE FOSAMIL 600 MG in D5W MINI-BAG PLUS 50 ML IV ×2 (04:57→16:01)
[2017-08-05 06:44] LABS: ANION GAP 8 MEQ/L (8-16); BLOOD UREA NITROGEN 15 MG/DL (7-18); CALCIUM LEVEL 8.4 MG/DL (8.5-10.1); CARBON DIOXIDE LEVEL 28 MEQ/L (21-32); CHLORIDE LEVEL 103 MEQ/L (98-107); CREATININE FOR GFR 0.97 MG/DL (0.70-1.30); GLOMERULAR FILTRATION RATE > 60.0 (>60); GLUCOSE, FASTING 109 MG/DL (70-100); POTASSIUM SERUM 3.5 MEQ/L (3.5-5.1); SODIUM LEVEL 139 MEQ/L (136-145)
[2017-08-05 07:47] LABS: HEMATOCRIT 33.6 % (42.0-52.0); HEMOGLOBIN 10.8 g/dl (14.0-18.0); MEAN CORPUSCULAR HEMOGLOBIN 27.5 pg (27.0-33.0); MEAN CORPUSCULAR HGB CONC 32.1 g/dl (32.0-36.5); MEAN CORPUSCULAR VOLUME 85.5 fl (80.0-96.0); PLATELET COUNT, AUTOMATED 145 10^3/uL (150-450); RED BLOOD COUNT 3.93 10^6/uL (4.30-6.10); RED CELL DISTRIBUTION WIDTH 14.3 % (11.5-14.5); WHITE BLOOD COUNT 6.6 10^3/uL (4.0-10.0)
[2017-08-05] MEDS: ENOXAPARIN 40 MG/0.4 ML SYRINGE (J1650) SC (09:11)
[2017-08-06] MEDS: LR 1,000 ML IV (04:05)
[2017-08-06] MEDS: CEFTAROLINE FOSAMIL 600 MG in D5W MINI-BAG PLUS 50 ML IV ×2 (04:05→17:16)
[2017-08-06 05:40] LABS: HEMATOCRIT 32.2 % (42.0-52.0); HEMOGLOBIN 10.5 g/dl (14.0-18.0); MEAN CORPUSCULAR HEMOGLOBIN 27.8 pg (27.0-33.0); MEAN CORPUSCULAR HGB CONC 32.6 g/dl (32.0-36.5); MEAN CORPUSCULAR VOLUME 85.2 fl (80.0-96.0); PLATELET COUNT, AUTOMATED 126 10^3/uL (150-450); RED BLOOD COUNT 3.78 10^6/uL (4.30-6.10); RED CELL DISTRIBUTION WIDTH 14.1 % (11.5-14.5); WHITE BLOOD COUNT 4.6 10^3/uL (4.0-10.0)
[2017-08-06 05:56] LABS: ANION GAP 6 MEQ/L (8-16); BLOOD UREA NITROGEN 12 MG/DL (7-18); CALCIUM LEVEL 8.3 MG/DL (8.5-10.1); CARBON DIOXIDE LEVEL 28 MEQ/L (21-32); CHLORIDE LEVEL 106 MEQ/L (98-107); CREATININE FOR GFR 0.78 MG/DL (0.70-1.30); GLOMERULAR FILTRATION RATE > 60.0 (>60); GLUCOSE, FASTING 111 MG/DL (70-100); POTASSIUM SERUM 3.7 MEQ/L (3.5-5.1); SODIUM LEVEL 140 MEQ/L (136-145)
[2017-08-06] MEDS: ENOXAPARIN 40 MG/0.4 ML SYRINGE (J1650) SC (08:25)
[2017-08-07] MEDS: CEFTAROLINE FOSAMIL 600 MG in D5W MINI-BAG PLUS 50 ML IV ×2 (05:32→17:04)
[2017-08-07 05:48] LABS: MEAN CORPUSCULAR HEMOGLOBIN 27.2 pg (27.0-33.0); MEAN CORPUSCULAR HGB CONC 31.3 g/dl (32.0-36.5); PLATELET COUNT, AUTOMATED 160 10^3/uL (150-450); RED BLOOD COUNT 3.68 10^6/uL (4.30-6.10); WHITE BLOOD COUNT 4.2 10^3/uL (4.0-10.0)
[2017-08-07 06:16] LABS: ANION GAP 7 MEQ/L (8-16); BLOOD UREA NITROGEN 13 MG/DL (7-18); CALCIUM LEVEL 8.2 MG/DL (8.5-10.1); CARBON DIOXIDE LEVEL 28 MEQ/L (21-32); CHLORIDE LEVEL 108 MEQ/L (98-107); CREATININE FOR GFR 0.69 MG/DL (0.70-1.30); GLOMERULAR FILTRATION RATE > 60.0 (>60); GLUCOSE, FASTING 92 MG/DL (70-100); POTASSIUM SERUM 3.8 MEQ/L (3.5-5.1); SODIUM LEVEL 143 MEQ/L (136-145)
[2017-08-07] MEDS: ENOXAPARIN 40 MG/0.4 ML SYRINGE (J1650) SC (07:45)
[2017-08-08] MEDS: CEFTAROLINE FOSAMIL 600 MG in D5W MINI-BAG PLUS 50 ML IV (05:02)
[2017-08-08 06:09] LABS: HEMATOCRIT 34.9 % (42.0-52.0); HEMOGLOBIN 10.9 g/dl (14.0-18.0); MEAN CORPUSCULAR HEMOGLOBIN 27.5 pg (27.0-33.0); MEAN CORPUSCULAR HGB CONC 31.2 g/dl (32.0-36.5); MEAN CORPUSCULAR VOLUME 88.1 fl (80.0-96.0); PLATELET COUNT, AUTOMATED 190 10^3/uL (150-450); RED BLOOD COUNT 3.96 10^6/uL (4.30-6.10); RED CELL DISTRIBUTION WIDTH 13.7 % (11.5-14.5); WHITE BLOOD COUNT 5.3 10^3/uL (4.0-10.0)
[2017-08-08 06:32] LABS: ANION GAP 3 MEQ/L (8-16); BLOOD UREA NITROGEN 11 MG/DL (7-18); CALCIUM LEVEL 8.4 MG/DL (8.5-10.1); CARBON DIOXIDE LEVEL 31 MEQ/L (21-32); CHLORIDE LEVEL 108 MEQ/L (98-107); CREATININE FOR GFR 0.78 MG/DL (0.70-1.30); GLOMERULAR FILTRATION RATE > 60.0 (>60); GLUCOSE, FASTING 94 MG/DL (70-100); POTASSIUM SERUM 4.1 MEQ/L (3.5-5.1); SODIUM LEVEL 142 MEQ/L (136-145)
[2017-08-08 08:42] LABS: C REACTIVE PROTEIN QUANTITATIV 5.72 MG/DL (0.00-0.30)
[2017-08-08] MEDS: ENOXAPARIN 40 MG/0.4 ML SYRINGE (J1650) SC (09:15)
[2017-08-08] MEDS: FUROSEMIDE 40 MG/4 ML VIAL (J1940) IV (10:40)
[2017-08-08] MEDS: ACETAMINOPHEN TAB 650MG DOSE (2X325MG) PO (14:13)
[2017-08-08] MEDS: BACTRIM 160MG/800MG DS TAB PO (20:13)
[2017-08-09 06:59] LABS: HEMATOCRIT 35.8 % (42.0-52.0); HEMOGLOBIN 11.1 g/dl (14.0-18.0); MEAN CORPUSCULAR HEMOGLOBIN 26.9 pg (27.0-33.0); MEAN CORPUSCULAR VOLUME 86.7 fl (80.0-96.0); PLATELET COUNT, AUTOMATED 246 10^3/uL (150-450); RED BLOOD COUNT 4.13 10^6/uL (4.30-6.10); RED CELL DISTRIBUTION WIDTH 13.8 % (11.5-14.5); WHITE BLOOD COUNT 7.5 10^3/uL (4.0-10.0)
[2017-08-09 07:11] LABS: ANION GAP 4 MEQ/L (8-16); BLOOD UREA NITROGEN 10 MG/DL (7-18); CALCIUM LEVEL 8.3 MG/DL (8.5-10.1); CARBON DIOXIDE LEVEL 30 MEQ/L (21-32); CHLORIDE LEVEL 108 MEQ/L (98-107); CREATININE FOR GFR 0.82 MG/DL (0.70-1.30); GLOMERULAR FILTRATION RATE > 60.0 (>60); GLUCOSE, FASTING 84 MG/DL (70-100); SODIUM LEVEL 142 MEQ/L (136-145)
[2017-08-09] MEDS: ENOXAPARIN 40 MG/0.4 ML SYRINGE (J1650) SC (09:36)
[2017-08-09] MEDS: FUROSEMIDE 40 MG/4 ML VIAL (J1940) IV (09:36)
[2017-08-09] MEDS: BACTRIM 160MG/800MG DS TAB PO (09:36)
== END 2017-08-09 10:28 | disposition home or self-care (01) | DRG 383 ==
LOC: M ED 15:28 → M ED INP 16:50 → M MSPAV 18:01
DX: L03.116 Cellulitis of left lower limb (principal); A08.11 Acute gastroenteropathy due to Norwalk agent; Z68.43 Body mass index [BMI] 50.0-59.9, adult; B95.61 Methicillin susceptible Staphylococcus aureus infection as the cause of diseases classified elsewhere; E66.01 Morbid (severe) obesity due to excess calories; Z91.048 Other nonmedicinal substance allergy status

== ENCOUNTER 2017-11-09 02:06 | Emergency (ER) | payer OTHER, SELFPAY ==
[2017-11-09] MEDS ORDERED: METAL LOCK LOOP XX ×2 (02:42)
[2017-11-09 02:59] LABS: BASO % 0.6 % (0.0-1.0); EOS # 0.1 10^3/uL (0.0-0.50); EOS % 2.1 % (0.0-3.0); HEMATOCRIT 40.2 % (42.0-52.0); IMMATURE GRANULOCYTE % 0.6 % (0-3.0); LYMPH # 1.9 10^3/uL (1.5-4.5); LYMPH % 28.1 % (24.0-44.0); MEAN CORPUSCULAR HEMOGLOBIN 28.4 pg (27.0-33.0); MEAN CORPUSCULAR HGB CONC 32.3 g/dl (32.0-36.5); MEAN CORPUSCULAR VOLUME 87.8 fl (80.0-96.0); MONO # 0.4 10^3/uL (0.0-0.8); MONO % 6.6 % (0.0-5.0); NEUTROPHILS # 4.2 10^3/uL (1.8-7.7); PLATELET COUNT, AUTOMATED 217 10^3/uL (150-450); RED BLOOD COUNT 4.58 10^6/uL (4.30-6.10); RED CELL DISTRIBUTION WIDTH 13.4 % (11.5-14.5); WHITE BLOOD COUNT 6.7 10^3/uL (4.0-10.0)
[2017-11-09] MEDS: AUGMENTIN 875 MG TAB PO ×2 (05:07)
== END 2017-11-09 05:16 | disposition home or self-care (01) ==
LOC: M ED 02:06
DX: L08.9 Local infection of the skin and subcutaneous tissue, unspecified (principal); I50.9 Heart failure, unspecified; E66.01 Morbid (severe) obesity due to excess calories; Z88.8 Allergy status to other drugs, medicaments and biological substances; Z79.899 Other long term (current) drug therapy
CPT/HCPCS: 93971